=== PATIENT | female | born 1940 | race Caucasian/White ===

== ENCOUNTER 2023-12-17 19:49 | Emergency (ER) | payer OTHER, SELFPAY ==
[2023-12-17 19:53] VITALS: BP 165/90; BMI 20.2
[2023-12-17 20:04] LABS: % Basophils 0.5 % (0-2); % Eosinophils 0.5 % (0-6); % Immature Granulocytes 0.5 % (0-0.5); % Lymphocytes 3.5 % (20.5-51.1); % Monocytes 5.6 % (1.7-9.3); % Neutrophils 89.4 % (42.2-75.2); Absolute Basophils 0.1 10^3/uL (0-0.2); Absolute Eosinophils 0.1 10^3/uL (0-0.7); Absolute Immature Granulocytes 0.1 10^3/uL (0-0.05); Absolute Lymphocytes 0.5 10^3/uL (1.2-3.4); Absolute Monocytes 0.9 10^3/uL (0.1-0.6); Absolute Neutrophils 13.6 10^3/uL (1.4-6.5); Hematocrit 33.9 % (37.0-47.0); Hemoglobin 10.3 g/dL (12.0-16.0); Mean Corp Hgb Conc. 30.4 g/dL (33.0-37.0); Mean Corpuscular Hgb 22.7 pg (27.0-31.0); Mean Corpuscular Volume 74.7 fL (81.0-99.0); Mean Platelet Volume 9.9 fL (7.4-10.4); Nucleated Red Blood Cells % 0 %; Platelet Count 350 10^3/uL (130-400); Red Blood Cell Count 4.54 10^6/uL (4.20-5.40); Red Cell Dist. Width 24.9 % (11.5-14.5); White Blood Cell Count 15.2 10^3/uL (4.8-10.8)
[2023-12-17 20:18] LABS: ALT (SGPT) 19 U/L (0-35); AST (SGOT) 32 U/L (14-36); Albumin 4.4 g/dl (3.5-5.0); Alkaline Phosphatase 94 U/L (38-126); Blood Urea Nitrogen 15 mg/dl (7-17); Calcium 11.6 mg/dl (8.4-10.2); Carbon Dioxide 23 mmol/L (22-30); Chloride 103 mmol/L (98-107); Estimated Creatinine Clearance 57 ml/min; Glucose 107 mg/dl (70-99); Lipase 154 U/L (23-300); Sodium 134 mmol/L (135-145); Total Bilirubin 0.4 mg/dl (0.2-1.3); Total Protein 6.8 g/dl (6.3-8.2); eGFR > 60.00
--- NOTE | 2023-12-17 20:34 | ED.GENMED ---
History of Present Illness
General
Chief Complaint: Abdominal Symptoms
Source: patient and family (Daughter)
Exam Limitations: none
Time Seen by Provider: 12/17/23 20:13
Travel History
Have you had any contact with someone who has COVID-19?: No
Do you have any symptoms of coronavirus? Fever > 100 degrees, chills, cough, shortness of breath, sore throat, loss of taste or smell, muscle aches, or headache?: No
History of Present Illness
History of Present Illness:
This is a 83 year old female that comes in with c/o abd pain. Patient states that this started 2 days ago and is getting worse. States that she is SOB and has a headache. Daughter states that she is to have an Endoscopy with Dr. Estrada. Denies any
nausea, vomiting, diarrea. Denies any fever, chills, dizziness, urinary burning.
Past History
Past History
ED Past Medical History: COPD, Hypercholesterolemia and Other (Chronic bronchitis, UTI, PNA, )
ED Past Surgical History: Cholecystectomy and Other (Cataracts)
Social History
Tobacco: Former smoker
Alcohol: Former
Personal:
Living: with family
Review of Systems
Review of Systems
All Other Systems: ROS reviewed and negative except as documented in HPI and ROS
Constitutional: Reports no symptoms; Denies fever or chills
EENT: Reports no symptoms
Respiratory: Reports trouble breathing; Denies cough
Cardiac: Reports no symptoms; Denies chest pain
ABD/GI: Reports abdominal pain; Denies nausea, vomiting or diarrhea
: Reports no symptoms
Musculoskeletal: Reports no symptoms
Skin: Reports no symptoms
Neurological: Reports headache; Denies dizzy
Psychiatric: Reports no symptoms
Phy Exam
General Physical Exam
General Presentation: mild distress
General age: appears stated age
General Skin: warm and dry
General Habitus: elderly
General Mental: alert
General Hydration: appears well hydrated
ENT Exam
ENT Exam: TM's normal, pharynx normal and neck supple
Eye Exam
Eye Exam: EOMI
Cardiovascular Exam
Cardiovascular Exam: regular rate/rhythm, no edema, no murmur and normal peripheral pulses
Pulmonary Exam
Pulmonary Exam: no respiratory distress, no rales, chest non tender, no rhonchi, no cough and other (Exp wheezing noted. )
Gastrointestinal Exam
Gastrointestinal Exam: soft, no organomegaly, no pulsatile mass, non distended, tender (Upper abd tenderness with palpation) and other (Hypoactive bowel sounds)
Musculoskeletal Exam
Musculoskeletal Exam: no edema and other (Long left boat on left foot due to prior fractures. )
Skin Exam
Skin Exam: normal color, warm/dry, no rash and no petechia
Psychiatric Exam
Psychiatric Exam: normal mood/affect
Course
Orders/Labs/Results
Orders:
Orders
12/17/23 19:50
Electrocardiogram (*1) Urgent
Reason for Study: Abdominal Pain
EKG- Treatment ONCE
12/17/23 19:51
Complete Blood Count/With Diff Urgent
Comprehensive Metabolic Panel Urgent
Lipase Urgent
12/17/23 20:32
0.9% Sodium Chloride 500 ml [Nss] 500 ml IV BOLUS
Iohexol [Omnipaque] See Protocol PO NOW STA
Ketorolac [Toradol] 30 mg IV NOW STA
Pantoprazole [Protonix IV] 40 mg IV NOW STA
12/17/23 20:33
CT Abd/pel W Iv And Oral Contr Urgent
Comment:
Reason For Exam: Upper abd pain.
CR Chest - 2 Views Urgent
Comment:
Reason For Exam: SOB
12/17/23 20:53
UA Reflex to Culture [Urinalysis Reflex To Culture] Urgent
Date Specimen was Collected: 12/17/23
Time Specimen was Collected: 20:50
Urine Microscopic Reflex Cult Urgent
Urine Culture Urgent
FREDDIE Source: U
Specimen Description:
Date Specimen was Collected: 12/17/23
Time Specimen was Collected: 20:50
12/17/23 23:52
NT-proBNP Urgent
Troponin I Urgent
Abnormal Lab Results
12/17/23 12/17/23
19:51 20:53
WBC 15.2 H 10^3/uL
(4.8-10.8)
Hgb 10.3 L g/dL
(12.0-16.0)
Hct 33.9 L %
(37.0-47.0)
MCV 74.7 L fL
(81.0-99.0)
MCH 22.7 L pg
(27.0-31.0)
MCHC 30.4 L g/dL
(33.0-37.0)
RDW 24.9 H %
(11.5-14.5)
Abs Immat Gran (auto) 0.1 H 10^3/uL
(0-0.05)
Absolute Neuts (auto) 13.6 H 10^3/uL
(1.4-6.5)
Absolute Lymphs (auto) 0.5 L 10^3/uL
(1.2-3.4)
Absolute Monos (auto) 0.9 H 10^3/uL
(0.1-0.6)
Neutrophils % 89.4 H %
(42.2-75.2)
Lymphocytes % 3.5 L %
(20.5-51.1)
Sodium 134 L mmol/L
(135-145)
Glucose 107 H mg/dl
(70-99)
Calcium 11.6 H mg/dl
(8.4-10.2)
Ur Occult Blood Reflex 1+ A
(Negative)
Leukocyte Esterase Rfl 1+ A
(Negative)
Urine WBC (Reflex) 11-15 A /HPF
(0-5)
Urine Bacteria (Reflex) Few A
(Negative)
12/17/23 19:51
12/17/23 19:51
Leukocytosis, H/H low but improved according to daughter and prior labs, Anemia, Glucose nonfasting. Calcium elevation. Lipase normal at 154
Vital Signs
Initial and Last Documented VS:
Initial Vital Signs
Temp Pulse Resp BP Pulse Ox
98.2 F 95 18 165/90 95
12/17/23 19:53 12/17/23 19:53 12/17/23 19:53 12/17/23 19:53 12/17/23 19:53
Last Documented Vital Signs
Temp Pulse Resp BP Pulse Ox
98.2 F 82 26 111/76 98
12/17/23 19:53 12/17/23 23:00 12/17/23 23:00 12/17/23 23:00 12/17/23 23:00
MDM/Problems Addressed
Differential Diagnosis Includes:
Gastritis, Duodenal Ulcer, Bowel Perforation
MDM/Problems Addressed:
This is a 83 year old female that comes in with c/o upper abd pain. States that this started 2 days ago and is getting worse. Daughter states that she is to have an Endoscopy by Dr. Estrada
Will get labs and CT abd/pelvis. Will give IV fluids and chest X-ray. Will medicate for pain.
CT cont- calcifications. Degenerative changes in the spine, pelvis and hips.
back into see patient and daughter. Reviewed labs and CT scan. Will have patient start Protonix daily and Carafate. Patient has an appointment with the remote sensing specialist on Sunday (Dr. Butterfield) and DR Estrada for Endoscopy next week. Patient to
return with increased SOB, abd pain, or any other concerns.
Chronic conditions affecting care: COPD
Acute Exacerbation and/or Progression of Chronic Illness: COPD
*Radiology
Radiology exam reviewed: radiology read reviewed (CT night hawk- No acute intra-abdominal pathology. No bowel obstruction, appreciable inflammatory process, or perforation. Colonic diverticulosis without signs of diverticulitis. Normal appendix.
Stomach appears within normal limits. Cholecystectomy. Extrahepatic ductal dilation (CBD measuring up to), all reviewed NAD by ED Provider (CT cont- 10mm in diameter) and intrahepatic ductal dilation ( mild to moderate). May be physiologic
postoperatively. Could correlate with biochemical parameters. No pancreatic ductal dilation. No sign of pancreatitis. No obstructing ureteral calculus, hydroureteronephrosis or signs of pyelonephritis) and other (CT cont- Markedly atrophic left
kidney. Urinary b ladder appears normal. No AAA. Emphysema and suspected areas of scarring in the visualized lung bases. 11mm spiculated nodule in the left lower lobe which is indeterminatne. Difficulty to exclude neoplasm. Coronary and systemic
atherosclerotic )
*Pulse Oximetry
Patient hypoxic: no
*EKG
Interpreted by ED Provider?: Yes
Heart Rate: 89
Rate: normal
Rhythm: sinus
[place]: normal axis
Interval: normal interval
QRS Pattern: normal QRS
Ischemia: non-specific ST changes (II, V3, V5, V6 Checked by Dr. Badillo)
*Section Beamer Interpretation
Rate: normal
Heart Rate: 95
Rhythm: sinus
*Critical Care Note
Total Time (30-74mins, 75-104mins- exclusive of procedures): Not Applicable
ED Attending Note
-
Portions of this chart may have been created with voice recognition software.� Occasional wrong word or��sound alike� substitutions may have occurred due to the inherent limitations of voice recognition software.
Discharge Plan
Departure
Patient Disposition: Home (Routine Discharge)
Date of Disposition: 12/18/23
Time of Disposition: 00:21
Patient with high blood pressure during this ER visit?: No
Condition: Good
Covid-19: Not Applicable
Discharge Problem:
Gastritis, Acute upper abdominal pain
Instructions: Gastritis (DC), Ulcer and Gastritis Diet, Abdominal Pain
Prescriptions:
New
pantoprazole [Protonix] 40 mg tablet,delayed release (DR/EC)
40 mg PO DAILY Qty: 30 0RF
sucralfate [Carafate] 1 gram tablet
1 g PO ACHS Qty: 40 0RF
Rx Instructions:
30min-1hour before meals and HS. Dissolve in 10ml water
No Action
albuterol sulfate [Ventolin HFA] 90 MCG/PUFF HFA aerosol inhaler
2 puff inhalation R Q4HPRN PRN (Reason: wheezing)
fluticasone furoate-vilanterol [Breo Ellipta] 1 EACH blister with device
1 inh inhalation R DAILY
Incruse Ellipta 62.5 mcg/actuation Blister With Device
1 inh INHALATION R DAILY
ascorbic acid (vitamin C) [Vitamin C] 500 mg Tablet
500 mg PO DAILY
zinc 50 mg Tablet
50 mg PO DAILY
cholecalciferol (vitamin D3) [Vitamin D3] 25 mcg (1,000 unit) Tablet
25 mcg PO DAILY
azithromycin 250 MG tablet
250 mg PO DAILY
albuterol sulfate 2.5 mg /3 mL (0.083 %) solution for nebulization
2.5 mg inhalation R DAILY@1500
aspirin 325 mg Tablet
325 mg PO DAILY
simvastatin 40 mg tablet
40 mg PO QPM
prednisone 1 mg tablet
1 mg PO DAILY
ferrous sulfate 325 mg (65 mg iron) Tablet
325 mg PO DAILY
budesonide 0.5 mg/2 mL suspension for nebulization
0.5 mg inhalation R DAILY@1500
quercetin 500 mg Capsule
500 mg PO DAILY
Methyl B-12
1 tab PO DAILY
Vitamin K M7
1 tab PO DAILY
Referrals:
Samreen Leung CRNP [Family Provider] - Call in 1-3 days for appt
Activity Restrictions/Additional Instructions:
As discussed, your blood work shows that your Anemia has improved some. Your WBC are elevated. This can be due to stress. Your urine is questionable for infection so if the culture comes back positive for infection you will be called and started on
an antibiotics. Your CT is negative for any acute disease. There is a left lower lobe Nodule that will need fo be followed by the remote sensing specialist. This upper abd pain may be a Gastritis. You have had 2 prescriptions sent to your Pharmacy. The
first is Carafate 1gm that you will take 30min to 1 hour before meals and again at Bedtime. The second is Protonix that you will take daily. Please use your oxygen at home to help with any SOB. IF YOU HAVE INCREASED OR CHANGING PAIN, OR YOU HAVE
ANY OTHER CONCERNS PLEASE RETURN TO THE EMERGENCY ROOM.
Interventions
Interventions:
*Risk Screen - Suicide Last Done: 12/17/23 19:53
*General Assessment Last Done: 12/17/23 19:53
*Neglect/Abuse Screening Last Done: 12/17/23 19:53
ED- Fall Risk Assessment Last Done: 12/17/23 19:53
FA-Ywvjen-Vfccdeectx Assessment Last Done: 12/17/23 19:55
[2023-12-17] MEDS: PROTONIX IV 40 MG IV (20:40)
[2023-12-17] MEDS: TORADOL 30 MG IV (20:40)
[2023-12-17] MEDS: OMNIPAQUE 50 ML PO (20:43)
[2023-12-17] MEDS: NSS 500 IV (20:43)
[2023-12-17 21:15] LABS: Urine Albumin Trace (Neg - Trace); Urine Bilirubin Negative (Negative); Urine Character Clear (Clear); Urine Color Yellow; Urine Glucose Negative (Negative); Urine Ketone Negative (Negative); Urine Leukocyte 1+ (Negative); Urine Nitrite Negative (Negative); Urine Occult Blood 1+ (Negative); Urine Urobilinogen Negative (Neg - 1+)
[2023-12-17 21:25] LABS: Urine Red Blood Cell 0-2 /HPF (0-2)
[2023-12-17 21:26] LABS: Urine Bacteria Few (Negative)
[2023-12-17 22:36] VITALS: BP 139/91
[2023-12-17 23:00] VITALS: BP 111/76
[2023-12-18] VITALS: BP 155/91
[2023-12-18 00:36] LABS: NT-proBNP 308 pg/ml; Troponin I < 0.012 ng/ml
== END 2023-12-18 00:30 | disposition home or self-care (01) ==
LOC: EMR 19:49
PROVIDERS: Clinical Nurse Specialist Family Health; EMERGENCY PHYSICIAN Emergency Medicine; FAMILY PHYSICIAN Nurse Practitioner Adult Health
DX: R10.10 Upper abdominal pain, unspecified (principal); K29.00 Acute gastritis without bleeding; J44.9 Chronic obstructive pulmonary disease, unspecified; Z87.891 Personal history of nicotine dependence
CPT/HCPCS: 99285; 96374; 96375; 96361 ×2; 71046; 74177; 80053; 81003; 81015; 83690; 83880; 84484; 85025; 87086; 93005; Q9967

== ENCOUNTER → 2024-03-19 15:49 | Outpatient (REF) | payer OTHER, SELFPAY | LOC: RAD 15:49 | PROVIDERS: ATTENDING PHYSICIAN Psychiatry & Neurology Neurology; FAMILY PHYSICIAN Family Medicine | DX: R41.89 Other symptoms and signs involving cognitive functions and awareness (principal) | CPT/HCPCS: 70450 ==

== ENCOUNTER → 2024-05-20 15:52 | Outpatient (REF) | payer OTHER, SELFPAY | LOC: RAD 15:52 | PROVIDERS: ATTENDING PHYSICIAN Radiology Radiation Oncology; FAMILY PHYSICIAN Family Medicine; REFERRING PHYSICIAN Internal Medicine Critical Care Medicine | DX: C34.32 Malignant neoplasm of lower lobe, left bronchus or lung (principal) | CPT/HCPCS: 71250 ==

== ENCOUNTER 2024-11-01 19:00 | Inpatient (IN) | payer OTHER, SELFPAY ==
[2024-11-01] VITALS (7 sets, daily range): BP systolic 111–151; BP diastolic 68–82; BMI 20.7; BMI 21.8
[2024-11-01 12:39] LABS: % Basophils 0.3 % (0-2); % Eosinophils 0.3 % (0-6); % Immature Granulocytes 0.7 % (0-0.5); % Lymphocytes 4.2 % (20.5-51.1); % Monocytes 7.8 % (1.7-9.3); % Neutrophils 86.7 % (42.2-75.2); Absolute Basophils 0.1 10^3/uL (0-0.2); Absolute Eosinophils 0.1 10^3/uL (0-0.7); Absolute Immature Granulocytes 0.1 10^3/uL (0-0.05); Absolute Lymphocytes 0.8 10^3/uL (1.2-3.4); Absolute Monocytes 1.4 10^3/uL (0.1-0.6); Hematocrit 38.8 % (37.0-47.0); Mean Corp Hgb Conc. 33.5 g/dL (33.0-37.0); Mean Corpuscular Volume 92.4 fL (81.0-99.0); Mean Platelet Volume 9.8 fL (7.4-10.4); Nucleated Red Blood Cells % 0 %; Platelet Count 344 10^3/uL (130-400); Red Cell Dist. Width 13.7 % (11.5-14.5); White Blood Cell Count 18.4 10^3/uL (4.8-10.8)
[2024-11-01 13:03] LABS: ALT (SGPT) 21 U/L (0-35); AST (SGOT) 25 U/L (14-36); Albumin 3.4 g/dl (3.5-5.0); Alkaline Phosphatase 99 U/L (38-126); Blood Urea Nitrogen 11 mg/dl (7-17); Calcium 10.3 mg/dl (8.4-10.2); Carbon Dioxide 20 mmol/L (22-30); Chloride 104 mmol/L (98-107); Glucose 100 mg/dl (70-99); Potassium 3.8 mmol/L (3.5-5.1); Sodium 136 mmol/L (135-145); Total Bilirubin 0.6 mg/dl (0.2-1.3); Total Protein 5.9 g/dl (6.3-8.2); eGFR > 60.00
--- NOTE | 2024-11-01 15:56 | ED.GENMED ---
History of Present Illness
<Neris Rodriguez PA-C - Last Filed: 11/01/24 21:35>
General
Chief Complaint: Breathing Problem
Source: patient and family (Daughter at bedside)
Exam Limitations: dementia
Time Seen by Provider: 11/01/24 14:59
Nursing documentation reviewed up to this point in time: agreed with
History of Present Illness
History of Present Illness:
Patient is an 83-year-old female with history of dementia, COPD presenting to the emergency department for evaluation of shortness of breath and right back pain. Patient unable to contribute fully to history given history of dementia.
However�patient's daughter is at bedside who is providing majority of history.
Apparently patient has been sick with URI/flu type symptoms over the past 10 days. She seemed to be improving until earlier this week when she seemed to get worse. She describes worsening shortness of breath and a pain in her right back. Daughter
states that starting yesterday she has had a few episodes of diarrhea, as well. No chest pain. Minimal productive cough. Patient denies any urinary symptoms or abdominal pain.
Patient does take antibiotics daily, azithromycin given COPD.
Past History
<Neris Rodriguez PA-C - Last Filed: 11/01/24 21:35>
Past History
ED Past Medical History: COPD, Hypercholesterolemia and Other (Chronic bronchitis, UTI, PNA, )
ED Past Surgical History: Cholecystectomy and Other (Cataracts)
Social History
Tobacco: Former smoker
Alcohol: Former
Personal:
Living: with family
Review of Systems
<Neris Rodriguez PA-C - Last Filed: 11/01/24 21:35>
Review of Systems
Allergies reviewed?: Yes
All Other Systems: ROS reviewed and negative except as documented in HPI and ROS
Phy Exam
<Neris Rodriguez PA-C - Last Filed: 11/01/24 21:35>
Physical Exam
Physical Exam:
Vitals: Mildly tachycardic and tachypneic, O2 saturation 92 on room air.
General: Patient is well appearing, no acute distress
Skin: Warm and dry, no rashes or lesions
Head: Normocephalic, atraumatic
Eyes: Sclera nonicteric. EOMs intact. No nystagmus.
Throat: Protecting airway
Neck: Normal ROM, no cervical spine tenderness, no meningismus
Cardiac: Mildly tachycardic, normal rhythm, no murmurs.
Pulm: Mildly tachypneic. Prolonged expiratory phase with significant wheezing bilaterally. Crackles in right mid lung zone.
Abdomen: Abdomen soft. No abdominal tenderness.
Extremities: No evidence of cyanosis or edema. Palpable DP pulses bilaterally
Neuro: AAOx3. Grossly intact.
Psychiatric: Normal affect.
Scores
<Neris Rodriguez PA-C - Last Filed: 11/01/24 21:35>
Heart Failure Risk
Heart Failure Risk Score: Not Applicable
Course
<Neris Rodriguez PA-C - Last Filed: 11/01/24 21:35>
Orders/Labs/Results
Orders:
Orders
11/01/24 Breakfast
Regular
11/01/24 12:14
Electrocardiogram (*1) Urgent
Reason for Study: Other
Other Reason for Exam: Respiratory Distress
EKG- Treatment ONCE
CR Chest - 2 Views Urgent
Comment:
Reason For Exam: respiratory distress
11/01/24 12:29
Complete Blood Count/With Diff Urgent
Comprehensive Metabolic Panel Urgent
Troponin I Urgent
11/01/24 15:27
0.9% Sodium Chloride 1000 ml [Nss] 1,000 ml IV BOLUS
Acetaminophen [Tylenol] 650 mg PO NOW STA
Dexamethasone Sod Phosphate [Decadron] 10 mg IV NOW STA
Ipratropium/Albuterol Sulfate [Duoneb] 3 ml INH R NOW STA
11/01/24 16:07
COVID-19 Antigen Urgent
Source: Nasal Swab
Lactic Acid Q4H
Comment: CANCEL 2nd LACTIC ACID IF 1st LACTIC ACID IS LESS THAN 2
Troponin I Urgent
Blood Culture Q30M
FREDDIE Source: Blood/Venous
Specimen Description:
Influenza A+B Rapid Molecular Urgent
FREDDIE Source: Nasal Swab
Specimen Description:
11/01/24 16:34
Piperacillin/Tazo 4.5 Gram [Zosyn] 4.5 gram in 100 ml IV NOW
11/01/24 17:05
Blood Culture Q30M
FREDDIE Source: Blood/Venous
Specimen Description:
11/01/24 17:16
CDIFF [C difficile Antigen & Toxins] Urgent
FREDDIE Source: Feces/Stool
Specimen Description:
11/01/24 18:46
Admit/Transfer Patient As Directed
Co-Sign Provider:
Level of Care: Inpatient admission
Assign to:: Medical/Surgical
Physician / Group: gama
Diagnosis: pneumonia
Reason for Hospitalization: pneumonia
Expected length of stay greater than two midnights?: Yes
ELOS- Estimated Length of Stay in days: 3
I certify the patient meets the requirements for IP care: Yes
PRN Pain Medication Management As Directed
May give lesser potent ordered pain med per pt: Yes
preference::
Protocol:: Medication orders for pain may be administered in a
manner that supports deferring to patient preference
when the pt is:
- Requesting an ordered lesser potent pain medication.
Least to most potent pain medications are defined
as: acetaminophen < NSAID < tramadol < opioids
(morphine, oxycodone, hydromorphone).
- Requesting a lesser dose of the same medication IF
ORDERED.
- Requesting a less intrusive route of administration
if both routes are prescribed by the provider (PO <
IV).
11/01/24 18:47
Code Status As Directed
Resuscitation Status: Full Code
11/01/24 19:00
Norovirus by PCR Routine
FREDDIE Source: Feces/Stool
Specimen Description:
Stool Culture Routine
FREDDIE Source: Feces/Stool
Specimen Description:
11/01/24 20:30
Acetaminophen [Tylenol] 650 mg PO Q4HPRN PRN
Acetaminophen [Tylenol] 650 mg PO Q4HPRN PRN
Buspirone [Buspar] 7.5 mg PO DAILYPRN PRN
Guaifenesin [Mucinex] 600 mg PO Q12
Ipratropium/Albuterol Sulfate [Duoneb] 3 ml INH R Q4HPRN PRN
Ipratropium/Albuterol Sulfate [Duoneb] 3 ml INH R QID
11/01/24 20:30
Legionella Urinary Antigen Routine
FREDDIE Source: Urine
Specimen Description:
Respiratory Culture/Gram Stain Urgent
FREDDIE Source: Sputum
Specimen Description:
Strep pneumoniae Antigen Routine
FREDDIE Source: Urine
Specimen Description:
Activity As Directed
Activity Level: As Tolerated
Intake/ Output As Directed
Frequency: Per unit guidelines
Vital Signs As Directed
Frequency: Per unit guidelines
Weight As Directed
Frequency: Once
Comment: on admission
Copd Education [RESP] Routine
O2 Therapy [RESP] Routine
Titrate/Wean O2 to maintain O2 sat greater than (%): 92
Special Instructions: adjust, if necessary, to avoid hyperoxia in CO2 retainers.
Use High Flow O2 if necessary
Pt Eval And Treat Routine
Activity Level: As Tolerated
DX Deep Vein Thrombosis Video Routine
11/01/24 22:00
Donepezil HCl [Aricept] 10 mg PO HS
Doxycycline [Vibramycin] 100 mg PO BID
11/02/24 00:00
CefTRIAXone [Rocephin] 1,000 mg IV Q24H
Dexamethasone Sod Phosphate [Decadron] 4 mg IV Q8H
11/02/24 06:00
Basic Metabolic Panel IN AM
Complete Blood Count/With Diff IN AM
11/02/24 08:00
Atorvastatin [Lipitor] 20 mg PO DAILY
Budesonide [Pulmicort] 0.5 mg INH R DAILY
Budesonide/Formoterol 160/4.5 [Symbicort 160/4.5 Mcg Inhaler] 2 puff INH R BID
Ferrous Sulfate [Feosol] 325 mg PO DAILY
Tiotropium Willard 2.5 Mcg [Spiriva Respimat 2.5 Mcg] 2 puff INH R DAILY
quercetin 500 mg PO DAILY
11/02/24 18:00
Enoxaparin Sodium [Lovenox] 30 mg SC QPM
11/03/24 06:00
Basic Metabolic Panel IN AM
Complete Blood Count/With Diff IN AM
11/04/24 06:00
Basic Metabolic Panel IN AM
Complete Blood Count/With Diff IN AM
11/05/24 06:00
Basic Metabolic Panel IN AM
Complete Blood Count/With Diff IN AM
Abnormal Lab Results
11/01/24
12:29
WBC 18.4 H 10^3/uL
(4.8-10.8)
Abs Immat Gran (auto) 0.1 H 10^3/uL
(0-0.05)
Absolute Neuts (auto) 16.0 H 10^3/uL
(1.4-6.5)
Absolute Lymphs (auto) 0.8 L 10^3/uL
(1.2-3.4)
Absolute Monos (auto) 1.4 H 10^3/uL
(0.1-0.6)
Immature Gran % 0.7 H %
(0-0.5)
Neutrophils % 86.7 H %
(42.2-75.2)
Lymphocytes % 4.2 L %
(20.5-51.1)
Carbon Dioxide 20 L mmol/L
(22-30)
Creatinine 0.5 L mg/dL
(0.6-1.0)
Glucose 100 H mg/dl
(70-99)
Calcium 10.3 H mg/dl
(8.4-10.2)
Total Protein 5.9 L g/dl
(6.3-8.2)
Albumin 3.4 L g/dl
(3.5-5.0)
11/01/24 12:29
11/01/24 12:29
Vital Signs
Initial and Last Documented VS:
Initial Vital Signs
Temp Pulse Resp BP Pulse Ox
98.1 F 95 18 114/68 95
11/01/24 12:11 11/01/24 12:11 11/01/24 12:11 11/01/24 12:11 11/01/24 12:11
Last Documented Vital Signs
Temp Pulse Resp BP Pulse Ox
97.7 F 92 20 151/80 95
11/01/24 20:50 11/01/24 20:50 11/01/24 20:50 11/01/24 20:50 11/01/24 20:50
<Sabrina Sy MD - Last Filed: 11/01/24 16:50>
Orders/Labs/Results
Orders:
Orders
11/01/24 Breakfast
Regular
11/01/24 12:14
Electrocardiogram (*1) Urgent
Reason for Study: Other
Other Reason for Exam: Respiratory Distress
EKG- Treatment ONCE
CR Chest - 2 Views Urgent
Comment:
Reason For Exam: respiratory distress
11/01/24 12:29
Complete Blood Count/With Diff Urgent
Comprehensive Metabolic Panel Urgent
Troponin I Urgent
11/01/24 15:27
0.9% Sodium Chloride 1000 ml [Nss] 1,000 ml IV BOLUS
Acetaminophen [Tylenol] 650 mg PO NOW STA
Dexamethasone Sod Phosphate [Decadron] 10 mg IV NOW STA
Ipratropium/Albuterol Sulfate [Duoneb] 3 ml INH R NOW STA
11/01/24 16:07
COVID-19 Antigen Urgent
Source: Nasal Swab
Lactic Acid Q4H
Comment: CANCEL 2nd LACTIC ACID IF 1st LACTIC ACID IS LESS THAN 2
Troponin I Urgent
Blood Culture Q30M
FREDDIE Source: Blood/Venous
Specimen Description:
Influenza A+B Rapid Molecular Urgent
FREDDIE Source: Nasal Swab
Specimen Description:
11/01/24 16:34
Piperacillin/Tazo 4.5 Gram [Zosyn] 4.5 gram in 100 ml IV NOW
11/01/24 17:05
Blood Culture Q30M
FREDDIE Source: Blood/Venous
Specimen Description:
11/01/24 17:16
CDIFF [C difficile Antigen & Toxins] Urgent
FREDDIE Source: Feces/Stool
Specimen Description:
11/01/24 18:46
Admit/Transfer Patient As Directed
Co-Sign Provider:
Level of Care: Inpatient admission
Assign to:: Medical/Surgical
Physician / Group: gama
Diagnosis: pneumonia
Reason for Hospitalization: pneumonia
Expected length of stay greater than two midnights?: Yes
ELOS- Estimated Length of Stay in days: 3
I certify the patient meets the requirements for IP care: Yes
PRN Pain Medication Management As Directed
May give lesser potent ordered pain med per pt: Yes
preference::
Protocol:: Medication orders for pain may be administered in a
manner that supports deferring to patient preference
when the pt is:
- Requesting an ordered lesser potent pain medication.
Least to most potent pain medications are defined
as: acetaminophen < NSAID < tramadol < opioids
(morphine, oxycodone, hydromorphone).
- Requesting a lesser dose of the same medication IF
ORDERED.
- Requesting a less intrusive route of administration
if both routes are prescribed by the provider (PO <
IV).
11/01/24 18:47
Code Status As Directed
Resuscitation Status: Full Code
11/01/24 19:00
Norovirus by PCR Routine
FREDDIE Source: Feces/Stool
Specimen Description:
Stool Culture Routine
FREDDIE Source: Feces/Stool
Specimen Description:
11/01/24 20:30
Acetaminophen [Tylenol] 650 mg PO Q4HPRN PRN
Acetaminophen [Tylenol] 650 mg PO Q4HPRN PRN
Buspirone [Buspar] 7.5 mg PO DAILYPRN PRN
Guaifenesin [Mucinex] 600 mg PO Q12
Ipratropium/Albuterol Sulfate [Duoneb] 3 ml INH R Q4HPRN PRN
Ipratropium/Albuterol Sulfate [Duoneb] 3 ml INH R QID
11/01/24 20:30
Legionella Urinary Antigen Routine
FREDDIE Source: Urine
Specimen Description:
Respiratory Culture/Gram Stain Urgent
FREDDIE Source: Sputum
Specimen Description:
Strep pneumoniae Antigen Routine
FREDDIE Source: Urine
Specimen Description:
Activity As Directed
Activity Level: As Tolerated
Intake/ Output As Directed
Frequency: Per unit guidelines
Vital Signs As Directed
Frequency: Per unit guidelines
Weight As Directed
Frequency: Once
Comment: on admission
Copd Education [RESP] Routine
O2 Therapy [RESP] Routine
Titrate/Wean O2 to maintain O2 sat greater than (%): 92
Special Instructions: adjust, if necessary, to avoid hyperoxia in CO2 retainers.
Use High Flow O2 if necessary
Pt Eval And Treat Routine
Activity Level: As Tolerated
DX Deep Vein Thrombosis Video Routine
11/01/24 22:00
Donepezil HCl [Aricept] 10 mg PO HS
Doxycycline [Vibramycin] 100 mg PO BID
11/02/24 00:00
CefTRIAXone [Rocephin] 1,000 mg IV Q24H
Dexamethasone Sod Phosphate [Decadron] 4 mg IV Q8H
11/02/24 06:00
Basic Metabolic Panel IN AM
Complete Blood Count/With Diff IN AM
11/02/24 08:00
Atorvastatin [Lipitor] 20 mg PO DAILY
Budesonide [Pulmicort] 0.5 mg INH R DAILY
Budesonide/Formoterol 160/4.5 [Symbicort 160/4.5 Mcg Inhaler] 2 puff INH R BID
Ferrous Sulfate [Feosol] 325 mg PO DAILY
Tiotropium Willard 2.5 Mcg [Spiriva Respimat 2.5 Mcg] 2 puff INH R DAILY
quercetin 500 mg PO DAILY
11/02/24 18:00
Enoxaparin Sodium [Lovenox] 30 mg SC QPM
11/03/24 06:00
Basic Metabolic Panel IN AM
Complete Blood Count/With Diff IN AM
11/04/24 06:00
Basic Metabolic Panel IN AM
Complete Blood Count/With Diff IN AM
11/05/24 06:00
Basic Metabolic Panel IN AM
Complete Blood Count/With Diff IN AM
Abnormal Lab Results
11/01/24
12:29
WBC 18.4 H 10^3/uL
(4.8-10.8)
Abs Immat Gran (auto) 0.1 H 10^3/uL
(0-0.05)
Absolute Neuts (auto) 16.0 H 10^3/uL
(1.4-6.5)
Absolute Lymphs (auto) 0.8 L 10^3/uL
(1.2-3.4)
Absolute Monos (auto) 1.4 H 10^3/uL
(0.1-0.6)
Immature Gran % 0.7 H %
(0-0.5)
Neutrophils % 86.7 H %
(42.2-75.2)
Lymphocytes % 4.2 L %
(20.5-51.1)
Carbon Dioxide 20 L mmol/L
(22-30)
Creatinine 0.5 L mg/dL
(0.6-1.0)
Glucose 100 H mg/dl
(70-99)
Calcium 10.3 H mg/dl
(8.4-10.2)
Total Protein 5.9 L g/dl
(6.3-8.2)
Albumin 3.4 L g/dl
(3.5-5.0)
11/01/24 12:29
11/01/24 12:29
Vital Signs
Initial and Last Documented VS:
Initial Vital Signs
Temp Pulse Resp BP Pulse Ox
98.1 F 95 18 114/68 95
11/01/24 12:11 11/01/24 12:11 11/01/24 12:11 11/01/24 12:11 11/01/24 12:11
Last Documented Vital Signs
Temp Pulse Resp BP Pulse Ox
97.7 F 92 20 151/80 95
11/01/24 20:50 11/01/24 20:50 11/01/24 20:50 11/01/24 20:50 11/01/24 20:50
<Neris Rodriguez PA-C - Last Filed: 11/01/24 21:35>
MDM/Problems Addressed
Differential Diagnosis Includes:
Not limited to: Viral illness, acute COPD exacerbation, pneumonia, bronchitis, pleural effusion, costochondritis, muscular strain, etc.
MDM/Problems Addressed:
Patient is an 83-year-old female with history as documented presenting with worsening shortness of breath and right back pain after recent URI. Also few episodes of diarrhea over the past few days. No chest pain. Mildly tachycardic and tachypneic
on initial vital signs although improved by my assessment. Patient is afebrile. Physical exam as above. Patient with bilateral wheezing with prolonged expiratory phase and crackles in right mid lung zone. Patient appears notably tachypneic with
mildly increased work of breathing. Impression likely COPD exacerbation secondary to viral illness with possible underlying pneumonia. Low suspicion for ACS. Do not suspect PE. Initial labs obtained in triage show a leukocytosis of 18.4 with
left shift. Otherwise no clinically significant abnormalities. EKG without any acute ischemic changes. Will check viral swabs, lactic, send blood cultures. Chest x-ray pending. Will treat with IV steroids, DuoNeb and closely monitor.
Anticipate admission
Update: Viral swabs negative. Lactic normal. Chest x-ray does show a mild right interstitial pneumonia. Given acute COPD exacerbation along with pneumonia with increased work of breathing�will admit for IV antibiotics, continued steroids and
further management. Will start IV Zosyn. Patient accepted to hospital service in stable condition.
Chronic conditions affecting care:
COPD
Acute Exacerbation and/or Progression of Chronic Illness:
Acute CHF exacerbation, pneumonia
<Neris Rodriguez PA-C - Last Filed: 11/01/24 21:35>
*Radiology
Radiology exam reviewed: radiology read reviewed (Right interstitial pneumonia)
*Pulse Oximetry
Patient hypoxic: yes
*EKG
Interpreted by ED Provider?: Yes
EKG Intrepretation Date: 11/01/24
Interpretation: normal
Comparison EKG: no changes
Heart Rate: 94
Rate: normal
Rhythm: sinus
[place]: normal axis
QRS Pattern: left vent hypertrophy
Ischemia: non-specific ST changes
*Junior Art Director Interpretation
Rate: normal
Interpretation: normal
Heart Rate: 90
Rhythm: sinus
*Critical Care Note
Total Time (30-74mins, 75-104mins- exclusive of procedures): Not Applicable
<Neris Rodriguez PA-C - Last Filed: 11/01/24 21:35>
Patient Management
Discussion with other providers: Hospitalist
Escalation/DeEscalation of care consider admission/obs:
Admit for acute CHF exacerbation, pneumonia
<Sabrina Sy MD - Last Filed: 11/01/24 16:50>
Update Note
Update Note:
83 yr old female with sxs of cough, sob and R mid madelin pain...sxs of URI for last 7-10 d,improved but then worse again over last day or two. No cp/abd pain/n/v/leg swelling. On exam, diffuse wheezing with R rales at base. No resp distress, abd
soft nt. Pt and daguther aware of plan for admisison, nebs, steroids and abx for presumed copd exac with pna. flu/covid esting pending.
ED Attending Note
<Neris Rodriguez PA-C - Last Filed: 11/01/24 21:35>
-
Portions of this chart may have been created with voice recognition software.� Occasional wrong word or��sound alike� substitutions may have occurred due to the inherent limitations of voice recognition software.
Discharge Plan
Departure
Patient Disposition: Admit
Date of Disposition: 11/01/24
Time of Disposition: 17:15
Presentation/result/management discussed w/ accepting MD/DO: Hospitalist
Discharge Problem:
Acute exacerbation of chronic obstructive pulmonary disease (COPD), CAP (community acquired pneumonia)
Interventions
Interventions:
*Risk Screen - Suicide Last Done: 11/01/24 12:11
*General Assessment Last Done: 11/01/24 20:31
*Neglect/Abuse Screening Last Done: 11/01/24 12:11
ED- Fall Risk Assessment Last Done: 11/01/24 20:29
*ED COVID-19 Vaccine History Last Done: 11/01/24 16:48
*Nursing Disposition Last Done: 11/01/24 20:29
ED- Cardiac Assessment Last Done: 11/01/24 17:58
ED- Pulmonary Assessment Last Done: 11/01/24 17:58
Discharge Date and Time
Discharge Date/Time: 11/01/24 20:31
[2024-11-01] MEDS: TYLENOL 650 MG PO (16:03)
[2024-11-01] MEDS: DUONEB 3 ML INH ×3 (16:05→20:47)
[2024-11-01] MEDS: NSS 1000 IV (16:05)
[2024-11-01] MEDS: DECADRON 10 MG IV (16:06)
[2024-11-01 16:46] LABS: Lactic Acid 1.1 mmol/L (0.7-2.0)
[2024-11-01 16:54] LABS: Troponin I 0.021 ng/ml
[2024-11-01 16:55] LABS: COVID-19 Antigen Negative (Negative)
[2024-11-01] MEDS: ZOSYN 100 IV (17:05)
--- NOTE | 2024-11-01 18:27 | HPS.HSE ---
Family Physician
-
Family Physician: NOT KNOW UNKNOWN - PT DOES
Chief Complaint
-
sob
cough
History of Present Illness
83-year-old female with history of dementia, COPD presenting to the emergency department for evaluation of congestion, non productive cough, fever, chills for past two weeks. she was taking her usual meds with no relief in her symptoms. she was
lightheaded. denied MINER, dizzy or syncope. she had fever of 101 last night. denied chest pain. she was extremely sob. denied abdominal pain but vomited once last weeks. she had some diarrhea for past few days.
patient uses 4l oxygen at home. she uses only as needed but for fast few days , she is all the time.
chest x ray with pneumonia. received Decadron and Zosyn in ER. admitting for further management.
Medical History
Past Medical History
Past Medical History: Reports Other
Additional Past Medical History:
Asthma
Osteoporosis
COPD
Bronchitis
Arthritis
Hypercalcemia
Osteoporosis
Past Surgical History: Reports Other
Additional Past Surgical History:
Cholecystectomy
Social History
Tobacco: Former Smoker
Alcohol: Former
Drug: None
Living: With Family
Family History
Family History: Not pertinent
Allergies / Home Medications
Allergies reflects when Allergies were last updated in [employer].
Home Medications with original date entered in [employer]
Allergy/Medication List:
Allergies
Allergy/AdvReac Type Severity Reaction Status Date / Time
No Known Allergies Allergy Verified 11/01/24 12:11
Home Medications
albuterol sulfate 90 mcg/actuation aerosol inhaler (Ventolin HFA) 2 puff inhalation R Q4HPRN PRN wheezing 05/05/17
ascorbic acid (vitamin C) 500 mg tablet (Vitamin C) 500 mg PO DAILY Supplement 09/09/22
azithromycin 250 mg tablet 250 mg PO DAILY exterminator helper 09/09/22
cholecalciferol (vitamin D3) 25 mcg (1,000 unit) tablet (Vitamin D3) 25 mcg PO DAILY Supplement 09/09/22
umeclidinium 62.5 mcg/actuation blister powder for inhalation (Incruse Ellipta) 1 inh inhalation R DAILY Lung/breathing issues 09/09/22
albuterol sulfate 2.5 mg/3 mL (0.083 %) solution for nebulization 2.5 mg inhalation R BIDPRN PRN sob 12/17/23
budesonide 0.5 mg/2 mL suspension for nebulization 0.5 mg inhalation R DAILY 12/17/23
cyanocobalamin (vitamin B-12) 1,000 mcg tablet 1,000 mcg PO DAILY 12/17/23
ferrous sulfate 325 mg (65 mg iron) tablet 325 mg PO DAILY 12/17/23
prednisone 1 mg tablet 2 mg PO MOWEFR 12/17/23
quercetin 500 mg capsule 500 mg PO DAILY 12/17/23
vitamin K2 (MK-4) 100 mcg tablet 100 mcg PO DAILY 12/17/23
ucfyklf-dsnplgizxejcv-xccjylcp 250 mg-250 mg-65 mg tablet (Excedrin Migraine) 1 tab PO DAILY 11/01/24
atorvastatin 20 mg tablet 20 mg PO DAILY 11/01/24
buspirone 7.5 mg tablet 7.5 mg PO DAILYPRN PRN anxiety 11/01/24
donepezil 10 mg tablet 10 mg PO HS 11/01/24
fluticasone furoate 200 mcg-vilanterol 25 mcg/dose inhalation powder (Breo Ellipta) 1 inh inhalation R DAILY 11/01/24
ibuprofen 200 mg tablet (Advil) 400 mg PO Q8HPRN PRN mild pain 11/01/24
therapeutic multivitamin 1 tab PO DAILY 11/01/24
zinc sulfate 50 mg zinc (220 mg) tablet 50 mg PO DAILY 11/01/24
Review of Systems
-
Constitutional: Reports No Symptoms, Fever, Fatigue and Chills
EENT: Reports No Symptoms
Respiratory: Reports Cough and Trouble Breathing
Cardiac: Reports No Symptoms
Abdomen/GI: Reports Vomiting and Diarrhea
: Reports No Symptoms
Musculoskeletal: Reports No Symptoms
Skin: Reports No Symptoms
Neurological: Reports No Symptoms
Endocrine: Reports No Symptoms
Hematologic/Lymphatic: Reports No Symptoms
Psych: Reports No Symptoms
Physical Exam
Vital Signs
Vital Signs
Temp Pulse Resp BP Pulse Ox
98.1 F 76 22 136/82 99
11/01/24 14:46 11/01/24 16:47 11/01/24 14:46 11/01/24 17:00 11/01/24 18:00
Physical Exam
General: Well Developed, Well Nourished and No Apparent Distress
HEENT: NormoCephalic, Moist mucous membranes and Atraumatic
Respiratory: Wheezes and Rhonchi
Cardiac: S1/S2 and Regular Rhythm; No Murmur or Rub
GI: Soft, Non Tender, Non Distended and Normal Bowel Sounds; No Organomegaly
Rectal: Deferred by Provider
Musculoskeletal: No Clubbing, No Cyanosis and No Edema
Skin: No Rash
Neuro: AO x 3 and Nonfocal/grossly intact
Psych: Calm
Laboratory Results
-
11/01/24 12:29
11/01/24 12:29
Laboratory Results
Lactic Acid 1.1 mmol/L (0.7-2.0) 11/01/24 16:07
Total Bilirubin 0.6 mg/dl (0.2-1.3) 11/01/24 12:29
AST 25 U/L (14-36) 11/01/24 12:29
ALT 21 U/L (0-35) 11/01/24 12:29
Alkaline Phosphatase 99 U/L (38-126) 11/01/24 12:29
Troponin I 0.021 ng/ml 11/01/24 16:07
Data Reviewed
-
Diagnostic Radiology: Report Reviewed by me
Lab Data: Labs Reviewed by me
Impression/Plan
-
# Right middle lobe pneumonia
# COPD exacerbation
#chronic hypoxic respiratory failure
-Continue DuoNebs
-Continue IV Decadron and abx
-WBC 18.4, patient is afebrile
-COVID, flu negative
-Chest x-ray with mild right middle lobe interstitial pneumonia
-Blood culture sent from ER
-continue supplemental oxygen to keep sat>92
-wean as tolerated
#diarrhea likely gastroenteritis
-stool for culture, c diff, norovirus
#History of hyperlipidemia
Continue statin
#Scoliosis with chronic back pain
-Tylenol as needed
DVT prophylaxis�Lovenox
Full code
--- NOTE | 2024-11-01 21:57 | W.PN.UPDATE ---
Update Note
Progress Note Update
Attending note
Patient seen independently
83-year-old woman comes in with congestion, non productive cough, fever, chills for past two weeks. She states she was lightheaded. She denied MINER, dizzy or syncope. She had fever of 101 last night. She denied chest pain. But she was extremely sob.
She denied abdominal pain but vomited once last weeks, and she had some diarrhea for past few days. chest x ray in ER with pneumonia. She received Decadron and Zosyn in ER.
Past Medical History
Asthma
Osteoporosis
COPD
Bronchitis
Arthritis
Hypercalcemia
Osteoporosis
Past Surgical History: Reports Other
Additional Past Surgical History:
Cholecystectomy
Physical Exam
General: Well Developed, Well Nourished and No Apparent Distress
HEENT: NormoCephalic, Moist mucous membranes and Atraumatic
Respiratory: Wheezes and Rhonchi
Cardiac: S1/S2 and Regular Rhythm; No Murmur or Rub
GI: Soft, Non Tender, Non Distended and Normal Bowel Sounds; No Organomegaly
Psych: Calm
Impression/Plan
1. Right middle lobe pneumonia with COPD exacerbation in setting of chronic hypoxic respiratory failure
-Continue DuoNebs
-Continue IV Decadron and abx
-Blood culture sent from ER
-continue supplemental oxygen to keep sat>92
-wean as tolerated
2. diarrhea (likely gastroenteritis)
-stool for culture, c diff, norovirus
Please see [employer] note for full details on
#History of hyperlipidemia
#Scoliosis with chronic back pain
DVT prophylaxis�Lovenox
Full code
[2024-11-01] MEDS: VIBRAMYCIN 100 MG PO (22:14)
[2024-11-01] MEDS: MUCINEX 600 MG PO (22:14)
[2024-11-01] MEDS: ARICEPT 10 MG PO (22:14)
--- NOTE | 2024-11-01 23:41 | PTCARENOTE ---
Pt admitted to [facility] from ED. Pt AAOx3, forgetful at times. Per patient, hx of multiple falls at home. Pt was reminded multiple times to use call lopez before getting out of bed. Bed alarm now in place for patient's safety. Pt on 4L O2, which she
uses at baseline at home as needed. Pt admitted for further management of PNA. Pt oriented to room, bed in lowest position and call lopez within reach.
[2024-11-02] MEDS: ROCEPHIN 1000 MG IV (00:20)
[2024-11-02] MEDS: STERILE WATER FOR INJECTION 10 ML IV (00:20)
[2024-11-02] MEDS: DECADRON 4 MG IV ×3 (00:20→17:14)
[2024-11-02 06:56] LABS: % Basophils 0.1 % (0-2); % Lymphocytes 4.2 % (20.5-51.1); % Monocytes 2.2 % (1.7-9.3); % Neutrophils 92.5 % (42.2-75.2); Absolute Immature Granulocytes 0.1 10^3/uL (0-0.05); Absolute Lymphocytes 0.4 10^3/uL (1.2-3.4); Absolute Monocytes 0.2 10^3/uL (0.1-0.6); Mean Corp Hgb Conc. 32.4 g/dL (33.0-37.0); Mean Corpuscular Hgb 30.7 pg (27.0-31.0); Mean Corpuscular Volume 94.6 fL (81.0-99.0); Nucleated Red Blood Cells % 0 %; Platelet Count 335 10^3/uL (130-400); Red Blood Cell Count 3.91 10^6/uL (4.20-5.40); Red Cell Dist. Width 13.9 % (11.5-14.5); White Blood Cell Count 8.6 10^3/uL (4.8-10.8)
[2024-11-02 07:26] LABS: Blood Urea Nitrogen 17 mg/dl (7-17); Calcium 9.9 mg/dl (8.4-10.2); Carbon Dioxide 20 mmol/L (22-30); Chloride 108 mmol/L (98-107); Estimated Creatinine Clearance 52 ml/min; Glucose 129 mg/dl (70-99); Potassium 4.1 mmol/L (3.5-5.1); Sodium 139 mmol/L (135-145); eGFR > 60.00
[2024-11-02 08:06] VITALS: BP 156/84
[2024-11-02] MEDS: PULMICORT 0.5 MG INH (08:06)
[2024-11-02] MEDS: DUONEB 3 ML INH ×4 (08:06→20:24)
[2024-11-02] MEDS: SYMBICORT 160/4.5 MCG INHALER 2 PUFF INH (08:06)
[2024-11-02] MEDS: MUCINEX 600 MG PO ×2 (08:49→21:01)
[2024-11-02] MEDS: FEOSOL 325 MG PO (08:49)
[2024-11-02] MEDS: LIPITOR 20 MG PO (08:49)
[2024-11-02] MEDS: VIBRAMYCIN 100 MG PO ×2 (08:49→21:01)
[2024-11-02] MEDS: TYLENOL 650 MG PO ×2 (08:51→21:13)
[2024-11-02] MEDS: BUSPAR 7.5 MG PO (08:52)
[2024-11-02 10:35] VITALS: BP 118/59; BP 152/77; PULSE 106; PULSE 90; O2SAT 98
--- NOTE | 2024-11-02 12:23 | W.PN.HOSP.TC ---
Today's Communication/Plan
-
Monitor vital signs see plan
Continue with antibiotics
Wean oxygen as tolerated
Continue with nebs
Continue steroids
Assessment / Plan
Assessment / Plan
General: Well Developed, Well Nourished and No Apparent Distress
HEENT: NormoCephalic, Moist mucous membranes and Atraumatic
Respiratory: Wheezes and Rhonchi
Cardiac: S1/S2 and Regular Rhythm; No Murmur or Rub
GI: Soft, Non Tender, Non Distended and Normal Bowel Sounds
Musculoskeletal: No Edema
Skin: No Rash
Neuro: AO x 3 and Nonfocal/grossly intact
Psych: Calm
Right middle lobe pneumonia
# COPD exacerbation
#chronic hypoxic respiratory failure, patient follows with Dr. Nevarez outpatient. Per patient she is supposed to use oxygen all the time however she is not using
-Continue DuoNebs
-Continue IV Decadron
Continue with ceftriaxone and doxycycline. Once done with this treatment then can go back to azithromycin daily
-COVID, flu negative
Check Legionella, strep
-Chest x-ray with mild right middle lobe interstitial pneumonia
-Blood culture sent from ER, pending
On O2, wean oxygen as tolerated
#diarrhea likely gastroenteritis
Appears now improving
-stool for culture, c diff, norovirus
#History of hyperlipidemia
Continue statin
Suspected cognitive impairment, no documented history of dementia
On donepezil
Monitor for behavioral change
Anxiety
On BuSpar as needed
#Scoliosis with chronic back pain
DVT prophylaxis�Lovenox
Full code
I spent a total of 52 minutes with the patient or on the floor. More than 50% of this time involved counseling and coordination of care.
Anticipated Discharge: > 48 hours
Subjective/Interval History
-
Date of Service: November 02, 2024
Denies pain
Objective Data
-
Labs:
Laboratory Results
11/02/24
05:33
WBC 8.6
Hgb 12.0
Hct 37.0
Plt Count 335
Sodium 139
Potassium 4.1
Chloride 108 H
Carbon Dioxide 20 L
BUN 17
Creatinine 0.5 L
Glucose 129 H
Calcium 9.9
Vital Signs:
Vital Signs
Temp Pulse Resp BP Pulse Ox
97.6 F 94 16 156/84 96
11/02/24 08:06 11/02/24 08:06 11/02/24 11:36 11/02/24 08:06 11/02/24 11:36
I&O
11/01/24 11/02/24 11/03/24
06:59 06:59 06:59
Intake Total 240 / 240
Balance 240 / 240
[2024-11-02 15:44] VITALS: BP 132/68
[2024-11-02] MEDS: LOVENOX 30 MG SC (17:13)
[2024-11-02] MEDS: KLONOPIN 0.25 MG PO (21:01)
[2024-11-02] MEDS: ARICEPT 10 MG PO (21:01)
--- NOTE | 2024-11-02 21:47 | PTCARENOTE ---
pt very jittery anxious and restless. B[employer] OUT TENDER [employer]ACE made aware, clonipine ordered and given.
[2024-11-02 23:36] VITALS: BP 136/76
[2024-11-03] MEDS: STERILE WATER FOR INJECTION 10 ML IV (00:18)
[2024-11-03] MEDS: DECADRON 4 MG IV ×3 (00:18→15:31)
[2024-11-03] MEDS: ROCEPHIN 1000 MG IV (00:18)
--- NOTE | 2024-11-03 04:55 | PTCARENOTE ---
Pt very agitated due to bed alarm going off when attempting to use bathroom by herself. Pt reminded multiple times to use call lopez due to fall risk. Pt also known to take oxygen off when ambulating, becoming very short of breath. Attempted to
educate patient on use of call lopez and purpose of bed alarm, but patient becoming very agitated with conversation and refusing to sit on bed or chair alarm, stating 'I've been here many times, and I've never had that. They just close the door at
night and I walk around by myself.' I reminded patient that during her admission she intake, she verbalized that she had multiple falls at home. She responded by saying 'everyone falls at home. It's not a big deal. I've never fallen at the
hospital.' Pt OOB to chair at this time. Call lopez next to patient. Medsitter in place.
[2024-11-03 06:27] LABS: % Basophils 0.1 % (0-2); % Immature Granulocytes 0.9 % (0-0.5); % Lymphocytes 2.8 % (20.5-51.1); % Monocytes 4.2 % (1.7-9.3); Absolute Immature Granulocytes 0.1 10^3/uL (0-0.05); Absolute Lymphocytes 0.4 10^3/uL (1.2-3.4); Absolute Monocytes 0.7 10^3/uL (0.1-0.6); Absolute Neutrophils 14.1 10^3/uL (1.4-6.5); Hematocrit 38.7 % (37.0-47.0); Hemoglobin 12.5 g/dL (12.0-16.0); Mean Corp Hgb Conc. 32.3 g/dL (33.0-37.0); Mean Corpuscular Hgb 30.3 pg (27.0-31.0); Mean Corpuscular Volume 93.7 fL (81.0-99.0); Mean Platelet Volume 9.6 fL (7.4-10.4); Nucleated Red Blood Cells % 0 %; Platelet Count 434 10^3/uL (130-400); Red Blood Cell Count 4.13 10^6/uL (4.20-5.40); Red Cell Dist. Width 13.8 % (11.5-14.5); White Blood Cell Count 15.4 10^3/uL (4.8-10.8)
[2024-11-03 06:46] LABS: Blood Urea Nitrogen 20 mg/dl (7-17); Carbon Dioxide 26 mmol/L (22-30); Chloride 106 mmol/L (98-107); Estimated Creatinine Clearance 52 ml/min; Glucose 136 mg/dl (70-99); Potassium 4.8 mmol/L (3.5-5.1); Sodium 139 mmol/L (135-145); eGFR > 60.00
[2024-11-03 07:15] VITALS: BP 144/74
[2024-11-03] MEDS: PULMICORT 0.5 MG INH (07:48)
[2024-11-03] MEDS: DUONEB 3 ML INH ×4 (07:48→19:20)
[2024-11-03] MEDS: FEOSOL 325 MG PO (08:21)
[2024-11-03] MEDS: VIBRAMYCIN 100 MG PO ×2 (08:21→20:29)
[2024-11-03] MEDS: MUCINEX 600 MG PO (08:21)
[2024-11-03] MEDS: LIPITOR 20 MG PO (08:21)
--- NOTE | 2024-11-03 10:06 | W.PN.HOSP.TC ---
Today's Communication/Plan
-
see plan
Assessment / Plan
Assessment / Plan
General: Well Developed, Well Nourished and No Apparent Distress
HEENT: NormoCephalic, Moist mucous membranes and Atraumatic
Respiratory: Wheezes and Rhonchi
Cardiac: S1/S2 and Regular Rhythm; No Murmur or Rub
GI: Soft, Non Tender, Non Distended and Normal Bowel Sounds
Musculoskeletal: No Edema
Skin: No Rash
Neuro: AO x 3 and Nonfocal/grossly intact
Psych: Calm
Right middle lobe pneumonia
# COPD exacerbation
#chronic hypoxic respiratory failure, patient follows with Dr. Nevarez outpatient. Per patient she is supposed to use oxygen all the time however she is not using
-Continue DuoNebs
-Continue IV Decadron
-Continue with ceftriaxone and doxycycline (day 2). Once done with this treatment then can go back to azithromycin daily
-leukocytosis resolved now up likely 2/2 steroids
-COVID, flu negative; Legionella/Strep negative
-Chest x-ray with mild right middle lobe interstitial pneumonia
On O2, wean oxygen as tolerated
#diarrhea likely gastroenteritis
Appears now improving
-stool for culture, c diff, norovirus
#History of hyperlipidemia
Continue statin
Suspected cognitive impairment, no documented history of dementia
On donepezil
Monitor for behavioral change
Anxiety
On BuSpar as needed
#Scoliosis with chronic back pain
DVT prophylaxis�Lovenox
Full code
I spent a total of 52 minutes with the patient or on the floor. More than 50% of this time involved counseling and coordination of care.
Anticipated Discharge: 24 - 48 hours
Subjective/Interval History
-
Date of Service: November 03, 2024
continues to feel congestion
breathing improving
Objective Data
-
Labs:
Laboratory Results
11/03/24
05:50
WBC 15.4 H
Hgb 12.5
Hct 38.7
Plt Count 434 H D
Sodium 139
Potassium 4.8
Chloride 106
Carbon Dioxide 26
BUN 20 H
Creatinine 0.5 L
Glucose 136 H
Calcium 11.0 H
Vital Signs:
Vital Signs
Temp Pulse Resp BP Pulse Ox
97.5 F 89 18 144/74 99
11/03/24 07:15 11/03/24 07:51 11/03/24 07:51 11/03/24 07:15 11/03/24 08:00
I&O
11/02/24 11/03/24 11/04/24
06:59 06:59 06:59
Intake Total 240 / 240 240 / 240
Balance 240 / 240 240 / 240
Review of Systems
-
History Source: Patient
All other systems: Reviewed and negative
Physical Exam
-
General: No Apparent Distress
HEENT: PERRLA
Respiratory: Decreased Breath Sounds
Cardiac: Regular Rhythm; Negative S1/S2
GI: Soft and Nontender
Musculoskeletal: No Edema
Skin: Warm and Dry; Negative Rash
Neuro: AO x 3
Psych: Calm
Data Reviewed
-
Diagnostic Radiology: Report Reviewed by me
Labs: Labs Reviewed by me
[2024-11-03 11:00] VITALS: BMI 21.8
[2024-11-03 15:55] VITALS: BP 120/64
[2024-11-03] MEDS: BUSPAR 7.5 MG PO (16:59)
[2024-11-03] MEDS: LOVENOX 30 MG SC (17:00)
[2024-11-03] MEDS: MUCINEX 1200 MG PO (20:29)
[2024-11-03] MEDS: ARICEPT 10 MG PO (21:55)
[2024-11-03 23:55] VITALS: BP 177/101
[2024-11-04] MEDS: DECADRON 4 MG IV ×3 (00:34→17:44)
[2024-11-04] MEDS: STERILE WATER FOR INJECTION 10 ML IV ×2 (00:34→23:34)
[2024-11-04] MEDS: ROCEPHIN 1000 MG IV ×2 (00:34→23:34)
[2024-11-04] MEDS: TYLENOL 650 MG PO ×3 (05:14→19:40)
[2024-11-04 06:35] LABS: % Basophils 0.3 % (0-2); % Immature Granulocytes 2.5 % (0-0.5); % Lymphocytes 2.7 % (20.5-51.1); % Monocytes 5.6 % (1.7-9.3); % Neutrophils 88.9 % (42.2-75.2); Absolute Immature Granulocytes 0.3 10^3/uL (0-0.05); Absolute Lymphocytes 0.4 10^3/uL (1.2-3.4); Absolute Monocytes 0.8 10^3/uL (0.1-0.6); Absolute Neutrophils 12.3 10^3/uL (1.4-6.5); Hematocrit 41.7 % (37.0-47.0); Hemoglobin 13.6 g/dL (12.0-16.0); Mean Corp Hgb Conc. 32.6 g/dL (33.0-37.0); Mean Corpuscular Hgb 30.4 pg (27.0-31.0); Mean Corpuscular Volume 93.1 fL (81.0-99.0); Mean Platelet Volume 9.6 fL (7.4-10.4); Nucleated Red Blood Cells % 0 %; Platelet Count 580 10^3/uL (130-400); Red Blood Cell Count 4.48 10^6/uL (4.20-5.40); Red Cell Dist. Width 13.7 % (11.5-14.5); White Blood Cell Count 13.9 10^3/uL (4.8-10.8)
[2024-11-04 06:53] LABS: Blood Urea Nitrogen 26 mg/dl (7-17); Calcium 11.7 mg/dl (8.4-10.2); Carbon Dioxide 24 mmol/L (22-30); Chloride 102 mmol/L (98-107); Estimated Creatinine Clearance 52 ml/min; Glucose 106 mg/dl (70-99); Potassium 4.8 mmol/L (3.5-5.1); Sodium 137 mmol/L (135-145); eGFR > 60.00
[2024-11-04 07:05] VITALS: BP 133/98
[2024-11-04] MEDS: PULMICORT 0.5 MG INH (07:24)
[2024-11-04] MEDS: DUONEB 3 ML INH ×4 (07:24→19:29)
[2024-11-04] MEDS: LIPITOR 20 MG PO (08:58)
[2024-11-04] MEDS: MUCINEX 1200 MG PO ×2 (08:58→19:40)
[2024-11-04] MEDS: FEOSOL 325 MG PO (09:02)
[2024-11-04] MEDS: VIBRAMYCIN 100 MG PO ×2 (09:02→19:40)
--- NOTE | 2024-11-04 09:18 | PN.CDI ---
CDI
- -
CDI:
Physician Documentation Request
Admit Date: 11/01/24 19:00
Dear Doctor Elli,
Clinical Indicators:
Patient admitted with RML Pneumonia and COPD exacerbation.
11/01 H & P, 'she had fever of 101 last night.'
WBC on admission:
11/01/24
12:29
WBC 18.4 H
HR trend on admission:
11/01/24
12:11 11/01/24
14:46
Pulse 95 104
Please clarify which of the following most accurately describes the status of the patient's infection:
Sepsis,POA
- Systemic manifestations of infection, with 2 or more SIRS criteria which include:
- Fever >100.4 degrees F or hypothermia < 96.8 degrees F
- Leukocytosis - WBC > 12,000 or leukopenia - WBC < 4,000 or > 10% bands
- Tachycardia > 90 beats per minute
- Tachypnea - RR > 20 breaths per minute or PaCO2 , 32mmHg
Source: Merck Manual 2013
Pneumonia Only, Without Systemic Illness
Other
Use of terms such as suspected, likely, concern for, or probable (associated with a specific diagnosis that is being evaluated, monitored, or treated as if it exists) are acceptable and can be coded in the inpatient setting, when documented at the
time of discharge.
Thank you,
Margi Perkins RN BSN
CDI Specialist
available via tiger text
Please use your independent medical judgment in providing your response.
--- NOTE | 2024-11-04 09:27 | PN.CDI ---
CDI
- -
CDI:
Physician Documentation Request
Admit Date: 11/01/24 19:00
Dear Doctor Elli,
Clinical Indicators:
Patient admitted with RML Pneumonia and COPD exacerbation.
11/01 ED report, 'Patient appears notably tachypneic with mildly increased work of breathing.'
11/02 (21:47) RN note, 'pt very jittery anxious and restless'
H & P, PN, 'chronic hypoxic respiratory failure'
Maximum O2 requirements:
11/02/24
23:36
Nasal Cannula flow liters per minute 5
Please clarify which of the following accurately represents the patient's respiratory status:
Acute on chronic respiratory failure
Chronic respiratory failure only
Other
Additional information for Respiratory Failure:
Recognized criteria for Respiratory Failure (Source: [facility] Hospitalist Aug 2013)
ABGs: (1 or more) Symptoms Please indicate type if known
1. p)2 <60 or RA SPO2 <91% on RA 1. Tachypnea, SOB, dyspnea Hypoxic
2. pCO2 50 and pH <7.35 2. Use of accessory muscles Hypercapnic
3. pO2 decrease of pCO2 increase by 3. Pallor or cyanosis Hypoxic and Hypercapnic
10 mmHg from baseline if known 4. Anxiety or restlessness Unable to determine
5. Unable to speak in full sentences
Supplemental O2 of > 40% (5LPM) Intubation is not required
Use of terms such as suspected, likely, concern for, or probable (associated with a specific diagnosis that is being evaluated, monitored, or treated as if it exists) are acceptable and can be coded in the inpatient setting, when documented at the
time of discharge.
Thank you,
Margi Perkins RN BSN
CDI Specialist
available via tiger text
Please use your independent medical judgment in providing your response.
--- NOTE | 2024-11-04 09:36 | PN.CDI ---
CDI
- -
CDI:
Physician Documentation Request
Admit Date: 11/01/24 19:00
Dear Doctor Elli,
Clinical Indicators:
Patient admitted with RML Pneumonia and COPD exacerbation.
11/03 note/assessment:
-'...pt did not mind showing me her clavicles and shoulders which revealed moderate muscle wasting at
shoulders, mild muscle wasting at clavicles, and mild fat loss at her triceps after doing tricep pinch.'
-'As per ASPEN/AND pt meets criteria for mild protein calorie malnutrition in the context of chronic illness with
NFPE findings of both moderate muscle wasting at shoulders and mild fat loss at triceps.'
Based on the above information and your assessment, which of the following most accurately represents the patient's nutritional status?
Mild Protein Calorie Malnutrition
Other (please specify)
[place] Criteria ([facility] Hospitalist 2017)
2 or more criteria must be present for either
non severe or severe malnutrition
Note that the criteria differs related to the
presence of an acute or chronic illness
Acute Illness Chronic Illness
Energy Intake Non Severe: <75% for >7 days Non Severe: <75% for >1 month
Severe: <50% for >5 days Severe: <75% for >1 month
Weight Loss Non Severe: 1-2% over 1 week Non Severe: 5% over 1 month
5% over 1 month 7.5% over 3 months
7.5% over 3 months 10% over 6 months
1 year N/A 20% over 1 year
Severe: >2% over 1 week Severe: >5% over 1 month
>5% over 1 month >7.5% over 3 months
>7.5% over 3 months >10% over 6 months
1 year N/A >20% over 1 year
Body Fat Non Severe: Mild Decrease Non Severe: Mild Loss
Severe: Moderate Decrease Severe: Severe Loss
Muscle Mass Non Severe: Mild Decrease Non Severe: Mild Loss
Severe: Moderate Decrease Severe: Severe Loss
Fluid Accumulation Non Severe: Mild Accumulation Non Severe: Mild Accumulation
Severe: Moderate to severe Severe: Moderate to severe
accumulation accumulation
Reduced Assistant Infant Toddler Teacher Strength Non Severe: N/A Non Severe: N/A
Severe: Measurably reduced Severe: Measurably reduced
Additional criteria that can be used to Determine if Mild or Moderate Malnutrition (Merck Manual 2018)
Mild Moderate Severe
Albumin gm/dl <3.0 gm/dl <2.5 gm/dl <2.0 gm/dl
Pre Albumin mg/dl <15 gm/dl <10 mg/dl <5.0 mg/dl
BMI <18.5 <17 <16
Use of terms such as suspected, likely, concern for, or probable (associated with a specific diagnosis that is being evaluated, monitored, or treated as if it exists) are acceptable and can be coded in the inpatient setting, when documented at the
time of discharge.
Thank you,
Margi Perkins RN BSN
CDI Specialist
available via tiger text
Please use your independent medical judgment in providing your response.
--- NOTE | 2024-11-04 10:35 | W.PN.HOSP.TC ---
Addendum entered and electronically signed by Camilla Calloway MD 11/05/24 10:55:
Mild Protein Calorie Malnutrition
-appreciate dietary
Sepsis, POA
continue antibiotics; sepsis resolved
acute hypoxic resp failure - resolved
requires O2 with ambulation - had O2 at home
Original Note:
Today's Communication/Plan
-
PT/OT
home O2 testing
expect ready for DC tomorrow
Assessment / Plan
Assessment / Plan
Right middle lobe pneumonia
# COPD exacerbation
#chronic hypoxic respiratory failure, patient follows with Dr. Nevarez outpatient. Per patient she is supposed to use oxygen all the time however she is not using
-Chest x-ray with mild right middle lobe interstitial pneumonia
-Continue DuoNebs
-Continue IV Decadron -- transition to prednisone tomorrow
-Continue with ceftriaxone and doxycycline (day 3). Once done with this treatment then can go back to azithromycin daily
-leukocytosis resolved now up likely 2/2 steroids
-COVID, flu negative; Legionella/Strep negative
On O2, wean oxygen as tolerated - home O2 testing today
#diarrhea likely gastroenteritis
Appears now improving
-stool for culture, c diff, norovirus
#History of hyperlipidemia
Continue statin
Suspected cognitive impairment, no documented history of dementia
On donepezil
Monitor for behavioral change
Anxiety
On BuSpar as needed
#Scoliosis with chronic back pain
DVT prophylaxis�Lovenox
Full code
Anticipated Discharge: 24 - 48 hours
Subjective/Interval History
-
Date of Service: November 04, 2024
states she is fatigued
breathing appears stable
has some right lower back pain
Objective Data
-
Labs:
Laboratory Results
11/04/24
05:37
WBC 13.9 H
Hgb 13.6
Hct 41.7
Plt Count 580 H D
Sodium 137
Potassium 4.8
Chloride 102
Carbon Dioxide 24
BUN 26 H
Creatinine 0.6
Glucose 106 H
Calcium 11.7 H
Vital Signs:
Vital Signs
Temp Pulse Resp BP Pulse Ox
98.0 F 84 16 133/98 98
11/04/24 07:05 11/04/24 07:27 11/04/24 07:27 11/04/24 07:05 11/04/24 07:27
I&O
11/03/24 11/04/24 11/05/24
06:59 06:59 06:59
Intake Total 240 / 240 900 / 900
Balance 240 / 240 900 / 900
Review of Systems
-
History Source: Patient
All other systems: Reviewed and negative
Physical Exam
-
General: No Apparent Distress
HEENT: PERRLA
Respiratory: Decreased Breath Sounds; Negative Wheezes
Cardiac: Regular Rhythm; Negative S1/S2
GI: Soft and Nontender
Musculoskeletal: No Edema
Skin: Warm and Dry; Negative Rash
Neuro: AO x 3
Psych: Calm
Data Reviewed
-
Diagnostic Radiology: Report Reviewed by me
Labs: Labs Reviewed by me
[2024-11-04 11:28] VITALS: BP 164/70; PULSE 72; O2SAT 97
--- NOTE | 2024-11-04 12:01 | CM ---
Addendum entered by Linda Delgado 11/04/24 12:22:
[facility] referrals sent via [facility] to [facility]
CM will follow up with Carie ferrer, via phone # [phone] with referral responses and site selection
Original Note:
Initial assessment and Discharge planning completed with daughter/primary contact, Carie Bunch, via phone # [phone]
Pharmacy verified [facility] @ [address] [place] [address]
Family Physician verified: Yolis Reggie # [phone]; Admissions notified to update chart
Daughter reported that her mother lives alone in a 1st floor apartment; no steps to enter; bath has tub w/ shower; commode over the toilet
Daughter reported that prior to recent illness mother was independent with personal care; able to feed self; recently stopped driving; ambulates with can when she goes out. Patient was diagnosed with Alzheimers in February/March 2024. Does not always
remember to take her medications. Is supposed to wear Oxygen 2-3 liter continuously but wears PRN instead
No history of SNF or Home Health utilization
Transportation to be determined
Explained to daughter that PT recommended SNF; SNF site options reviewed; [facility]
Plan: Discharge to SNF pending bed availability and AUTH approval
[2024-11-04 15:08] VITALS: BP 134/82
--- NOTE | 2024-11-04 15:15 | PTCARENOTE ---
patient c/o of right lower back pain today. medicated with PRN Tylenol and k-pad applied as ordered to right lower back with some relief. patient able to sleep some today, feels weak, assist x1 from bed to BR, video monitor maintained for patient
safety, vss, will continue to monitor.
[2024-11-04] MEDS: LOVENOX 30 MG SC (17:41)
[2024-11-04] MEDS: ARICEPT 10 MG PO (21:55)
[2024-11-04] MEDS: NON-FORMULARY ITEM 1 DROP LEFT EYE (21:56)
[2024-11-04 23:00] VITALS: BP 168/86
--- NOTE | 2024-11-05 02:09 | DOWNTIME ---
There was a [employer] Downtime on 11/05/2024 from 0100 to 11/05/2023 at 0205 . Downtime documentation of patient's care, including medication administrations, has been reconciled in the electronic record per guidelines. Refer to the
patient's paper chart under the miscellaneous tab to see printed paper medication records and downtime forms.
[2024-11-05 06:24] LABS: % Basophils 0.8 % (0-2); % Immature Granulocytes 4.2 % (0-0.5); % Lymphocytes 5.3 % (20.5-51.1); % Monocytes 13.4 % (1.7-9.3); % Neutrophils 76.3 % (42.2-75.2); Absolute Basophils 0.1 10^3/uL (0-0.2); Absolute Immature Granulocytes 0.4 10^3/uL (0-0.05); Absolute Lymphocytes 0.5 10^3/uL (1.2-3.4); Absolute Monocytes 1.3 10^3/uL (0.1-0.6); Absolute Neutrophils 7.6 10^3/uL (1.4-6.5); Hematocrit 38.9 % (37.0-47.0); Hemoglobin 12.8 g/dL (12.0-16.0); Mean Corp Hgb Conc. 32.9 g/dL (33.0-37.0); Mean Corpuscular Hgb 30.8 pg (27.0-31.0); Mean Corpuscular Volume 93.5 fL (81.0-99.0); Mean Platelet Volume 9.5 fL (7.4-10.4); Nucleated Red Blood Cells % 0 %; Platelet Count 469 10^3/uL (130-400); Red Blood Cell Count 4.16 10^6/uL (4.20-5.40)
[2024-11-05 06:47] LABS: Blood Urea Nitrogen 24 mg/dl (7-17); Calcium 11.3 mg/dl (8.4-10.2); Carbon Dioxide 29 mmol/L (22-30); Chloride 102 mmol/L (98-107); Estimated Creatinine Clearance 45 ml/min; Glucose 97 mg/dl (70-99); Potassium 5.1 mmol/L (3.5-5.1); Sodium 137 mmol/L (135-145); eGFR > 60.00
[2024-11-05 07:30] VITALS: BP 148/74
[2024-11-05] MEDS: PULMICORT 0.5 MG INH (07:31)
[2024-11-05] MEDS: DUONEB 3 ML INH ×4 (07:31→21:09)
[2024-11-05] MEDS: VIBRAMYCIN 100 MG PO ×2 (08:56→21:43)
[2024-11-05] MEDS: MUCINEX 1200 MG PO ×2 (08:56→21:43)
[2024-11-05] MEDS: DELTASONE 40 MG PO (08:56)
[2024-11-05] MEDS: FEOSOL 325 MG PO (08:56)
[2024-11-05] MEDS: LIPITOR 20 MG PO (08:56)
--- NOTE | 2024-11-05 10:52 | W.PN.HOSP.TC ---
Today's Communication/Plan
-
OK for DC today
Assessment / Plan
Assessment / Plan
Right middle lobe pneumonia
# COPD exacerbation
#chronic hypoxic respiratory failure, patient follows with Dr. Nevarez outpatient. Per patient she is supposed to use oxygen all the time however she is not using
-Chest x-ray with mild right middle lobe interstitial pneumonia
-Continue DuoNebs
-Continue IV Decadron -- transition to prednisone today
-Continue with ceftriaxone and doxycycline (day 4/5). Once done with this treatment then can go back to azithromycin daily
-leukocytosis resolved now up likely 2/2 steroids
-COVID, flu negative; Legionella/Strep negative
On O2, wean oxygen as tolerated - home O2 testing today
#diarrhea likely gastroenteritis
Appears now improving
-stool for culture, c diff, norovirus - not collected, no further diarrhea
#History of hyperlipidemia
Continue statin
Suspected cognitive impairment, no documented history of dementia
On donepezil
Monitor for behavioral change
Anxiety
On BuSpar as needed
#Scoliosis with chronic back pain
DVT prophylaxis�Lovenox
Full code
Anticipated Discharge: Today
Subjective/Interval History
-
Date of Service: November 05, 2024
some low back pain
wants to be repositioned in bed
Objective Data
-
Labs:
Laboratory Results
11/05/24
05:36
WBC 10.0
Hgb 12.8
Hct 38.9
Plt Count 469 H
Sodium 137
Potassium 5.1
Chloride 102
Carbon Dioxide 29
BUN 24 H
Creatinine 0.7
Glucose 97
Calcium 11.3 H
Vital Signs:
Vital Signs
Temp Pulse Resp BP Pulse Ox
97.5 F 88 16 148/74 96
01/22/25 07:30 11/05/24 07:33 11/05/24 07:33 11/05/24 07:30 11/05/24 07:30
I&O
11/04/24 11/05/24 11/06/24
06:59 06:59 06:59
Intake Total 900 / 900 900 / 900 960 / 960
Balance 900 / 900 900 / 900 960 / 960
Review of Systems
-
History Source: Patient
All other systems: Reviewed and negative
Physical Exam
-
General: No Apparent Distress
HEENT: PERRLA
Respiratory: Decreased Breath Sounds; Negative Wheezes
Cardiac: Regular Rhythm; Negative S1/S2
GI: Soft and Nontender
Musculoskeletal: No Edema
Skin: Warm and Dry; Negative Rash
Neuro: AO x 3
Psych: Calm
Data Reviewed
-
Diagnostic Radiology: Report Reviewed by me
Labs: Labs Reviewed by me
--- NOTE | 2024-11-05 11:00 | W.DS.TRANS ---
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
-
Discharge Instructions:
Discharge Diagnosis/Procedures community acquired pneumonia, COPD exacerbation
Diet Regular
Activity As tolerated
Driving Restrictions No driving
Bathing Restrictions None
Other Services PT,OT
Instructions:
Stand-Alone Forms:
Changes to Home Medications: Yes
Discharge Medications:
DC Medications w/original date entered in [employer]
albuterol sulfate 90 mcg/actuation aerosol inhaler (Ventolin HFA) 2 puff inhalation R Q4HPRN PRN wheezing 05/05/17
ascorbic acid (vitamin C) 500 mg tablet (Vitamin C) 500 mg PO DAILY Supplement 09/09/22
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
cholecalciferol (vitamin D3) 25 mcg (1,000 unit) tablet (Vitamin D3) 25 mcg PO DAILY Supplement 09/09/22
umeclidinium 62.5 mcg/actuation blister powder for inhalation (Incruse Ellipta) 1 inh inhalation R DAILY Lung/breathing issues 09/09/22
albuterol sulfate 2.5 mg/3 mL (0.083 %) solution for nebulization 2.5 mg inhalation R BIDPRN PRN sob 12/17/23
budesonide 0.5 mg/2 mL suspension for nebulization 0.5 mg inhalation R DAILY 12/17/23
cyanocobalamin (vitamin B-12) 1,000 mcg tablet 1,000 mcg PO DAILY 12/17/23
ferrous sulfate 325 mg (65 mg iron) tablet 325 mg PO DAILY 12/17/23
prednisone 1 mg tablet 2 mg PO MOWEFR 12/17/23
quercetin 500 mg capsule 500 mg PO DAILY 12/17/23
vitamin K2 (MK-4) 100 mcg tablet 100 mcg PO DAILY 12/17/23
rzmpkgg-bxyfzorilznsv-qrcwfjhp 250 mg-250 mg-65 mg tablet (Excedrin Migraine) 1 tab PO DAILY 11/01/24
atorvastatin 20 mg tablet 20 mg PO DAILY 11/01/24
buspirone 7.5 mg tablet 7.5 mg PO DAILYPRN PRN anxiety 11/01/24
donepezil 10 mg tablet 10 mg PO HS 11/01/24
fluticasone furoate 200 mcg-vilanterol 25 mcg/dose inhalation powder (Breo Ellipta) 1 inh inhalation R DAILY 11/01/24
ibuprofen 200 mg tablet (Advil) 400 mg PO Q8HPRN PRN mild pain 11/01/24
therapeutic multivitamin 1 tab PO DAILY 11/01/24
zinc sulfate 50 mg zinc (220 mg) tablet 50 mg PO DAILY 11/01/24
bimatoprost 0.01 % eye drops (Lumigan) 1 drp LEFT EYE HS 11/04/24
Home Medication Changes
You have two more pills of Cefdinir and Doxycycline (last dose tomorrow morning 11/06)
Continue Prednisone taper:
40mg x 2 days; 30mg x 3 days; 20mg x 3 days; 10mg x 3 days
You may resume Azithromycin daily on 11/07/24
Addition of Mucinex
Pending Results: No
[2024-11-05] MEDS: TYLENOL 1000 MG PO (11:33)
[2024-11-05 14:38] VITALS: PULSE 74; O2SAT 99
--- NOTE | 2024-11-05 15:08 | CM ---
CM reviewed chart, [facility] no beds at this time, [facility] referral palced, no response. [facility] able to offer patient a bed for tomorrow. CM spoke with patients daughter, Carie, agreeable to [facility] for rehab. IMM verbally reviewed,
daughter agreeable to discharge plan. Daughter reports patient will need ambulance transport, forms on chart. Auth submitted through [employer]: [id number], approved 11/06-11/12, Tiffany at [facility] updated. CM will continue to follow for all
discharge planning needs.
Plan; [facility] SNF tomorrow, transport forms on chart, will need transport scheduled.
[2024-11-05 15:50] VITALS: BP 128/73
[2024-11-05] MEDS: LOVENOX 30 MG SC (21:42)
[2024-11-05] MEDS: ARICEPT 10 MG PO (21:43)
[2024-11-05] MEDS: NON-FORMULARY ITEM 1 DROP LEFT EYE (21:44)
[2024-11-05] MEDS: TYLENOL 650 MG PO (22:19)
[2024-11-05 23:00] VITALS: BP 125/98
[2024-11-06] MEDS: ROCEPHIN 1000 MG IV (00:51)
[2024-11-06] MEDS: STERILE WATER FOR INJECTION 10 ML IV (00:51)
[2024-11-06] MEDS: PULMICORT 0.5 MG INH (07:14)
[2024-11-06 07:30] VITALS: BP 145/79
[2024-11-06] MEDS: MUCINEX 1200 MG PO (08:03)
[2024-11-06] MEDS: LIPITOR 20 MG PO (08:03)
[2024-11-06] MEDS: VIBRAMYCIN 100 MG PO (08:03)
[2024-11-06] MEDS: FEOSOL 325 MG PO (08:03)
[2024-11-06] MEDS: DELTASONE 40 MG PO (08:03)
[2024-11-06] MEDS: TYLENOL 650 MG PO (08:03)
--- NOTE | 2024-11-06 09:59 | W.PN.HOSP.TC ---
Today's Communication/Plan
-
DC today
Assessment / Plan
Assessment / Plan
Right middle lobe pneumonia
# COPD exacerbation
#chronic hypoxic respiratory failure, patient follows with Dr. Nevarez outpatient. Per patient she is supposed to use oxygen all the time however she is not using
-Chest x-ray with mild right middle lobe interstitial pneumonia
-Continue DuoNebs
-s/p IV Decadron - DC on quick prednisone taper (patient with confusion on steroids)
-completed antibiotic course in hospital
-leukocytosis resolved now up likely 2/2 steroids
-COVID, flu negative; Legionella/Strep negative
On O2, wean oxygen as tolerated - home O2 testing today
#diarrhea likely gastroenteritis
Appears now improving
-stool for culture, c diff, norovirus - not collected, no further diarrhea
#History of hyperlipidemia
Continue statin
Suspected cognitive impairment, no documented history of dementia
On donepezil
Monitor for behavioral change
Anxiety
On BuSpar as needed
#Scoliosis with chronic back pain
DVT prophylaxis�Lovenox
Full code
Anticipated Discharge: Today
Subjective/Interval History
-
Date of Service: November 06, 2024
no new complaints
Objective Data
-
Vital Signs:
Vital Signs
Temp Pulse Resp BP Pulse Ox
97.8 F 92 18 145/79 93
11/06/24 07:30 11/06/24 07:30 11/06/24 07:30 11/06/24 07:30 11/06/24 07:30
I&O
11/05/24 11/06/24 11/07/24
06:59 06:59 06:59
Intake Total 900 / 900 1680 / 1680
Balance 900 / 900 1680 / 1680
Review of Systems
-
History Source: Patient
All other systems: Reviewed and negative
Physical Exam
-
General: No Apparent Distress
HEENT: PERRLA
Respiratory: Decreased Breath Sounds; Negative Wheezes
Cardiac: Regular Rhythm; Negative S1/S2
GI: Soft and Nontender
Musculoskeletal: No Edema
Skin: Warm and Dry; Negative Rash
Neuro: AO x 3
Psych: Calm
Data Reviewed
-
Diagnostic Radiology: Report Reviewed by me
Labs: Labs Reviewed by me
--- NOTE | 2024-11-06 10:07 | W.DS.TRANS ---
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
-
Discharge Instructions:
Discharge Diagnosis/Procedures community acquired pneumonia, COPD exacerbation
Diet Regular
Activity As tolerated
Driving Restrictions No driving
Bathing Restrictions None
Other Services PT,OT
Instructions:
Stand-Alone Forms:
Changes to Home Medications: Yes
Discharge Medications:
DC Medications w/original date entered in [employer]
albuterol sulfate 90 mcg/actuation aerosol inhaler (Ventolin HFA) 2 puff inhalation R Q4HPRN PRN wheezing 05/05/17
ascorbic acid (vitamin C) 500 mg tablet (Vitamin C) 500 mg PO DAILY Supplement 09/09/22
azithromycin 250 mg tablet 250 mg PO DAILY rn long term care 09/09/22
cholecalciferol (vitamin D3) 25 mcg (1,000 unit) tablet (Vitamin D3) 25 mcg PO DAILY Supplement 09/09/22
umeclidinium 62.5 mcg/actuation blister powder for inhalation (Incruse Ellipta) 1 inh inhalation R DAILY Lung/breathing issues 09/09/22
albuterol sulfate 2.5 mg/3 mL (0.083 %) solution for nebulization 2.5 mg inhalation R BIDPRN PRN sob 12/17/23
budesonide 0.5 mg/2 mL suspension for nebulization 0.5 mg inhalation R DAILY 12/17/23
cyanocobalamin (vitamin B-12) 1,000 mcg tablet 1,000 mcg PO DAILY 12/17/23
ferrous sulfate 325 mg (65 mg iron) tablet 325 mg PO DAILY 12/17/23
prednisone 1 mg tablet 2 mg PO MOWEFR 12/17/23
quercetin 500 mg capsule 500 mg PO DAILY 12/17/23
vitamin K2 (MK-4) 100 mcg tablet 100 mcg PO DAILY 12/17/23
nhtowza-kpdlwysrdfoiz-alxhvlmm 250 mg-250 mg-65 mg tablet (Excedrin Migraine) 1 tab PO DAILY 11/01/24
atorvastatin 20 mg tablet 20 mg PO DAILY 11/01/24
buspirone 7.5 mg tablet 7.5 mg PO DAILYPRN PRN anxiety 11/01/24
donepezil 10 mg tablet 10 mg PO HS 11/01/24
fluticasone furoate 200 mcg-vilanterol 25 mcg/dose inhalation powder (Breo Ellipta) 1 inh inhalation R DAILY 11/01/24
therapeutic multivitamin 1 tab PO DAILY 11/01/24
zinc sulfate 50 mg zinc (220 mg) tablet 50 mg PO DAILY 11/01/24
bimatoprost 0.01 % eye drops (Lumigan) 1 drp LEFT EYE HS 11/04/24
guaifenesin 600 mg tablet, extended release 12 hr 1,200 mg (2 x 600 mg) PO Q12 #30 tabs 11/05/24
prednisone 10 mg tablet 10 mg PO DIRECTED #13 tabs 11/05/24
Home Medication Changes
You completed your antibiotic course of IV Ceftriaxone/Doxycycline in the hospital
Continue Prednisone taper:
Take 30mg x 2 days; 20mg x 2 days; 10mg x 2 days; 5 mg x 2 days then resume home prednisone dosing
Pending Results: No
--- NOTE | 2024-11-06 10:12 | CM ---
Please call report [phone] fax [phone]. Patient daughter Carie contacted and is supportive of transfer to SNF today. Patient will need ambulance transfer. CM spoke with Tiffany at SNF and update with auth number provided to Tiffany.
Patient is for discharge. CM will continue to follow for discharge planning needs.
Plan; SNF
--- NOTE | 2024-11-06 13:17 | PTCARENOTE ---
Report given to Kailtin FRAZIER at rehab facility.
--- NOTE | 2024-11-06 14:01 | W.DCSUMMARY ---
Discharge Summary
Discharge Data
Date of Admission: 11/01/24
Date of Discharge: 11/06/24
-
Pending Results: No
Hospital Course
Discharging Physician : Dr. Camilla Calloway
Disposition : SNF
Primary care physician : Dr. Tiesha Paredes
Principal Discharge diagnosis : COPD Exacerbation, Community Acquired Pneumonia
Hospital Course :
Ms. Zaira Cid is a 83 yo woman with hx dementia, COPD presents to the ER with cough, fever up to 101 night prior. Triage vitals stable. Flu and covid negative. CXR with right middle lobe pneumonia. She was admitted to medicine and started on
treatment for COPD and pneumonia. Respiratory status improved. She completed 5 day course of antibiotics in-house and is discharged on a prednisone taper back to home dose Prednisone 2mg MOWEFR. She is discharged to SNF.
Time spent on discharge was 31 minutes.
Important imaging findings :
CXR
IMPRESSION:
Mild right middle lobe interstitial pneumonia
Procedure findings :
Discharge Plan
-
Patient Disposition: Jail/SNF
Discharge Diagnosis/Procedures: community acquired pneumonia, COPD exacerbation
Diet: Regular
Activity: As tolerated
Driving Restrictions: No driving
Bathing Restrictions: None
Other Services: PT and OT
Referrals:
Tiesha Paredes, DO [Family Provider] - in less than 1 week
Additional Discharge Medication Instructions: You completed your antibiotic course of IV Ceftriaxone/Doxycycline in the hospital
Continue Prednisone taper:
Take 30mg x 2 days; 20mg x 2 days; 10mg x 2 days; 5 mg x 2 days then resume home prednisone dosing
You may resume Azithromycin daily
Prescriptions:
New
guaifenesin 600 mg Tablet Extended Release 12hr
1,200 mg PO Q12 Qty: 30 0RF
prednisone 10 mg tablet
10 mg PO DIRECTED Qty: 13 0RF
Rx Instructions:
Take 30mg x 2 days; 20mg x 2 days; 10mg x 2 days; 5 mg x 2 days then resume home prednisone dosing
Continued
albuterol sulfate [Ventolin HFA] 90 MCG/PUFF HFA aerosol inhaler
2 puff inhalation R Q4HPRN PRN (Reason: wheezing)
Incruse Ellipta 62.5 mcg/actuation Blister With Device
1 inh INHALATION R DAILY
ascorbic acid (vitamin C) [Vitamin C] 500 mg Tablet
500 mg PO DAILY
cholecalciferol (vitamin D3) [Vitamin D3] 25 mcg (1,000 unit) Tablet
25 mcg PO DAILY
azithromycin 250 MG tablet
250 mg PO DAILY
albuterol sulfate 2.5 mg /3 mL (0.083 %) solution for nebulization
2.5 mg inhalation R BIDPRN PRN (Reason: sob)
cyanocobalamin (vitamin B-12) 1,000 mcg Tablet
1,000 mcg PO DAILY
ferrous sulfate 325 mg (65 mg iron) Tablet
325 mg PO DAILY
budesonide 0.5 mg/2 mL suspension for nebulization
0.5 mg inhalation R DAILY
vitamin K2 (MK-4) 100 mcg Tablet
100 mcg PO DAILY
quercetin 500 mg Capsule
500 mg PO DAILY
atorvastatin 20 mg Tablet
20 mg PO DAILY
donepezil 10 mg Tablet
10 mg PO HS
therapeutic multivitamin Tablet
1 tab PO DAILY
zinc sulfate 50 mg zinc (220 mg) Tablet
50 mg PO DAILY
buspirone 7.5 mg Tablet
7.5 mg PO DAILYPRN PRN (Reason: anxiety)
Patient Comments:
11/01/24: Patient rarely takes this medication.
Excedrin Migraine 250-250-65 mg Tablet
1 tab PO DAILY
fluticasone furoate-vilanterol [Breo Ellipta] 200-25 mcg/dose Blister With Device
1 inh INHALATION R DAILY
Lumigan 0.01 % Drops
1 drp LEFT EYE HS
Held
prednisone 1 mg tablet
2 mg PO MOWEFR
Hold Instructions: Resume on 11/14/24.
Discontinued
ibuprofen [Advil] 200 mg Tablet
400 mg PO Q8HPRN PRN (Reason: mild pain)
Discharge Orders:
Discharge Patient (As Directed); Ordered 11/06/24
Ordered By: Camilla Calloway
Discharge Date and Time
Print Language: CAPE VERDEAN
== END 2024-11-06 14:26 | DRG 871 ==
LOC: 3 WEST ACU 19:00
PROVIDERS: Physician Assistant; Registered Nurse; Student in an Organized Health Care Education/Training Program; ADMITTING PHYSICIAN Internal Medicine; ATTENDING PHYSICIAN Student in an Organized Health Care Education/Training Program; EMERGENCY PHYSICIAN Emergency Medicine; FAMILY PHYSICIAN Family Medicine
DX: A41.9 Sepsis, unspecified organism (principal); J96.21 Acute and chronic respiratory failure with hypoxia; J44.0 Chronic obstructive pulmonary disease with (acute) lower respiratory infection; E44.1 Mild protein-calorie malnutrition; F03.94 Unspecified dementia, unspecified severity, with anxiety; J96.11 Chronic respiratory failure with hypoxia; J44.1 Chronic obstructive pulmonary disease with (acute) exacerbation; E78.00 Pure hypercholesterolemia, unspecified; E83.52 Hypercalcemia; G89.29 Other chronic pain; K52.9 Noninfective gastroenteritis and colitis, unspecified; M19.90 Unspecified osteoarthritis, unspecified site; M41.9 Scoliosis, unspecified; M81.0 Age-related osteoporosis without current pathological fracture; Z79.899 Other long term (current) drug therapy; Z87.891 Personal history of nicotine dependence; Z20.822 Contact with and (suspected) exposure to COVID-19; Z68.21 Body mass index [BMI] 21.0-21.9, adult; Z79.82 Long term (current) use of aspirin; Z79.52 Long term (current) use of systemic steroids
CPT/HCPCS: 71046; 80048; 80053; 83605; 84484; 85025; 87040; 87449; 87502; 87811; 87899; 93005; 94640; 96361; 96374; 96375; 97163; 97167; 97530; 99285

== ENCOUNTER → 2024-12-04 15:22 | Outpatient (REF) | payer OTHER, SELFPAY | LOC: RAD 15:22 | PROVIDERS: ATTENDING PHYSICIAN Internal Medicine Critical Care Medicine | DX: R91.1 Solitary pulmonary nodule (principal) | CPT/HCPCS: 71250 ==

== ENCOUNTER → 2025-05-06 12:41 | Outpatient (REF) | payer OTHER, SELFPAY | LOC: HWCARD 12:41 | PROVIDERS: ATTENDING PHYSICIAN Family Medicine; REFERRING PHYSICIAN Physician Assistant Medical | DX: G30.9 Alzheimer's disease, unspecified (principal) | CPT/HCPCS: 93005 ==

== ENCOUNTER 2025-10-04 01:17 | Inpatient (IN) | payer OTHER, SELFPAY ==
[2025-10-03] VITALS (8 sets, daily range): BP systolic 153–192; BP diastolic 71–108
--- NOTE | 2025-10-03 19:44 | ED.MUSCINJ ---
HPI-Injury
General
Chief Complaint: Fall
Source: patient
Exam Limitations: none
Time Seen by Provider: 10/03/25 19:36
History of Present Illness-Injury
Initial Injury comments:
84-year-old female not anticoagulated presents via EMS from fall at home. This was a witnessed fall. She fell forward striking her face on the floor and landing on her left wrist. She notes left wrist deformity and pain. She also notes a
laceration to the upper lip. No no loss of conscious. She denies neck or back pain. No other complaints
Past History
Past History
ED Past Medical History: COPD, Hypercholesterolemia and Other (Chronic bronchitis, UTI, PNA, )
ED Past Surgical History: Cholecystectomy and Other (Cataracts)
Social History
Tobacco: Former smoker
Alcohol: Former
Personal:
Living: with family
Phy Exam
Physical Exam
Physical Exam:
General: Well-appearing female no acute respiratory distress
HEENT: Normal cephalic laceration upper lip measuring 1 cm mostly on the mucosal surface dentition appears well pupils equal round reactive to light
Heart: Regular rate and rhythm lungs: Clear no wheeze
Musculoskeletal exam: Spine is nontender. The left wrist is swollen and deformed and tender. The right ankle is swollen and tender
Neurologic exam: Alert and oriented no facial asymmetry. Good strength to the upper lower extremities
Injury Course
Orders/Labs/Results
Orders:
Orders
10/03/25 19:42
CT Cervical Spine W/o Iv Contr Urgent
Comment:
Reason For Exam: fall
CT Head W/o Iv Contrast Urgent
Comment:
Reason For Exam: fall
HYDROmorphone [Dilaudid] 0.5 mg IV NOW STA
CR Ankle - Right Min 3 Views * Urgent
Comment:
Reason For Exam: fall
CR Wrist - Left Min 3 Views Urgent
Comment:
Reason For Exam: fall
10/03/25 21:06
HYDROmorphone [Dilaudid] 0.5 mg .ROUTE .STK-MED ONE
10/03/25 21:08
HYDROmorphone [Dilaudid] 0.5 mg IV NOW STA
10/03/25 22:19
Sling Left-Treatment ONCE
10/03/25 22:29
Ondansetron Injectable [Zofran] 4 mg .ROUTE .STK-MED ONE
10/03/25 22:33
Ondansetron Injectable [Zofran] 4 mg IV NOW STA
MDM/Problems Addressed
Differential Diagnosis Includes:
Mechanical fall with head strike and left wrist pain. Will order x-rays of the left wrist CT head and cervical spine pending x-ray right ankle pending
*Pulse Oximetry
SaO2: 96
Patient hypoxic: no
*Critical Care Note
Total Time (30-74mins, 75-104mins- exclusive of procedures): Not Applicable
Update Note
Update Note:
I personally visualized x-rays of the left wrist right ankle and CT of the head and cervical spine. The left wrist has a slightly angulated and impacted distal radius and ulnar fracture. I placed a sugar-tong splint using cast padding 2 inch OCL
and Sameer bandages in a sugar-tong fashion. Gentle longitudinal traction was applied as well as dorsal fracture during the splint application. The wound on the lip was closed with sutures. It was anesthetized with 1% lidocaine. This was then
irrigated with saline and closed with four 6-0 Vicryl sutures in a simple erupted fashion. Daughter is now in the room. Sounds like they have been trying to get the patient to move houses right now although she lives independently. As the exam
and time in the room progress her dementia becomes more evident. She repeatedly asked the same question about her arm and her lip. I do not think she is a good candidate for discharge. Feel she would benefit from case management involvement with
potential placement and orthopedic consultation.
ED Attending Note
-
Portions of this chart may have been created with voice recognition software.� Occasional wrong word or��sound alike� substitutions may have occurred due to the inherent limitations of voice recognition software.
Discharge Plan
Departure
Patient Disposition: Admit
Date of Disposition: 10/03/25
Time of Disposition: 23:34
Presentation/result/management discussed w/ accepting MD/DO: Hospitalist
Discharge Problem:
Fall, Distal radius fracture, left, Laceration
Prescriptions:
No Action
albuterol sulfate [Ventolin HFA] 90 MCG/PUFF HFA aerosol inhaler
2 puff inhalation R Q4HPRN PRN (Reason: wheezing)
Incruse Ellipta 62.5 mcg/actuation Blister With Device
1 inh INHALATION R DAILY
ascorbic acid (vitamin C) [Vitamin C] 500 mg Tablet
500 mg PO DAILY
cholecalciferol (vitamin D3) [Vitamin D3] 25 mcg (1,000 unit) Tablet
25 mcg PO DAILY
azithromycin 250 MG tablet
250 mg PO DAILY
albuterol sulfate 2.5 mg /3 mL (0.083 %) solution for nebulization
2.5 mg inhalation R BIDPRN PRN (Reason: sob)
cyanocobalamin (vitamin B-12) 1,000 mcg Tablet
1,000 mcg PO DAILY
prednisone 1 mg tablet
2 mg PO MOWEFR
ferrous sulfate 325 mg (65 mg iron) Tablet
325 mg PO DAILY
budesonide 0.5 mg/2 mL suspension for nebulization
0.5 mg inhalation R DAILY
vitamin K2 (MK-4) 100 mcg Tablet
100 mcg PO DAILY
quercetin 500 mg Capsule
500 mg PO DAILY
atorvastatin 20 mg Tablet
20 mg PO DAILY
donepezil 10 mg Tablet
10 mg PO HS
therapeutic multivitamin Tablet
1 tab PO DAILY
zinc sulfate 50 mg zinc (220 mg) Tablet
50 mg PO DAILY
buspirone 7.5 mg Tablet
7.5 mg PO DAILYPRN PRN (Reason: anxiety)
Patient Comments:
11/01/24: Patient rarely takes this medication.
Excedrin Migraine 250-250-65 mg Tablet
1 tab PO DAILY
fluticasone furoate-vilanterol [Breo Ellipta] 200-25 mcg/dose Blister With Device
1 inh INHALATION R DAILY
Lumigan 0.01 % Drops
1 drp LEFT EYE HS
guaifenesin 600 mg Tablet Extended Release 12hr
1,200 mg PO Q12 Qty: 30 0RF
prednisone 10 mg tablet
10 mg PO DIRECTED Qty: 13 0RF
Rx Instructions:
Take 30mg x 2 days; 20mg x 2 days; 10mg x 2 days; 5 mg x 2 days then resume home prednisone dosing
Referrals:
Samreen Leung CRNP [Family Provider, General]
Interventions
Interventions:
*General Assessment Last Done: 10/03/25 19:21
*Neglect/Abuse Screening Last Done: 10/03/25 19:40
*ED COVID-19 Vaccine History Last Done: 10/03/25 19:21
*ED Influenza Vaccine History Last Done: 10/03/25 19:21
[facility] Fall Risk Assessment Tool Last Done: 10/03/25 19:20
*Risk Screen - Suicide (C-SSRS) Last Done: 10/03/25 19:21
ED-Musculoskeletal Assessment Last Done: 10/03/25 19:30
ED- Neurological Assessment Last Done: 10/03/25 19:30
ED-Skin Assessment Last Done: 10/03/25 19:30
Discharge Date and Time
Print Language: ROMANIAN
[2025-10-03] MEDS: DILAUDID 0.5 MG IV ×2 (19:53→21:08)
[2025-10-03] MEDS: ZOFRAN 4 MG IV (22:33)
[2025-10-04] VITALS (25 sets, daily range): BP systolic 117–187; BP diastolic 55–112; BMI 20.9
--- NOTE | 2025-10-04 00:13 | HPS.HSE ---
Family Physician
-
Family Physician: YOLI Gayle
Chief Complaint
-
Fall
History of Present Illness
This is a 83-year-old female with past medical history significant for asthma, COPD, osteoporosis, anxiety who presents to the emergency department following a witnessed mechanical fall.
In the emergency department she was afebrile, blood pressure of 168/[address] of the head and C-spine shows no acute abnormalities. Ankle x-ray was unremarkable. A left wrist x-ray shows some mild deformity.
Medical History
Past Medical History
Past Medical History: Reports Other
Additional Past Medical History:
Asthma
Osteoporosis
COPD
Bronchitis
Arthritis
Hypercalcemia
Osteoporosis
Past Surgical History: Reports Other
Additional Past Surgical History:
Cholecystectomy
Social History
Tobacco: Former Smoker
Alcohol: Former
Drug: None
Living: With Family
Family History
Family History: Not pertinent
Allergies / Home Medications
Allergies reflects when Allergies were last updated in [employer].
Home Medications with original date entered in [employer]
Allergy/Medication List:
Allergies
Allergy/AdvReac Type Severity Reaction Status Date / Time
No Known Allergies Allergy Verified 11/01/24 12:11
Home Medications
albuterol sulfate 90 mcg/actuation aerosol inhaler (Ventolin HFA) 2 puff inhalation R Q4HPRN PRN wheezing 05/05/17
ascorbic acid (vitamin C) 500 mg tablet (Vitamin C) 500 mg PO DAILY Supplement 09/09/22
azithromycin 250 mg tablet 250 mg PO DAILY [facility] 09/09/22
cholecalciferol (vitamin D3) 25 mcg (1,000 unit) tablet (Vitamin D3) 25 mcg PO DAILY Supplement 09/09/22
umeclidinium 62.5 mcg/actuation blister powder for inhalation (Incruse Ellipta) 1 inh inhalation R DAILY Lung/breathing issues 09/09/22
albuterol sulfate 2.5 mg/3 mL (0.083 %) solution for nebulization 2.5 mg inhalation R BIDPRN PRN sob 12/17/23
budesonide 0.5 mg/2 mL suspension for nebulization 0.5 mg inhalation R DAILY 12/17/23
cyanocobalamin (vitamin B-12) 1,000 mcg tablet 1,000 mcg PO DAILY 12/17/23
ferrous sulfate 325 mg (65 mg iron) tablet 325 mg PO DAILY 12/17/23
prednisone 1 mg tablet 2 mg PO MOWEFR 12/17/23
Held on 11/05/24. Instructions: Resume on 11/14/24.
quercetin 500 mg capsule 500 mg PO DAILY 12/17/23
vitamin K2 (MK-4) 100 mcg tablet 100 mcg PO DAILY 12/17/23
edylfdb-dkmybagcbqtyd-ikqrnkyz 250 mg-250 mg-65 mg tablet (Excedrin Migraine) 1 tab PO DAILY 11/01/24
atorvastatin 20 mg tablet 20 mg PO DAILY 11/01/24
buspirone 7.5 mg tablet 7.5 mg PO DAILYPRN PRN anxiety 11/01/24
donepezil 10 mg tablet 10 mg PO HS 11/01/24
fluticasone furoate 200 mcg-vilanterol 25 mcg/dose inhalation powder (Breo Ellipta) 1 inh inhalation R DAILY 11/01/24
therapeutic multivitamin 1 tab PO DAILY 11/01/24
zinc sulfate 50 mg zinc (220 mg) tablet 50 mg PO DAILY 11/01/24
bimatoprost 0.01 % eye drops (Lumigan) 1 drp LEFT EYE HS 11/04/24
guaifenesin 600 mg tablet, extended release 12 hr 1,200 mg (2 x 600 mg) PO Q12 #30 tabs 11/05/24
prednisone 10 mg tablet 10 mg PO DIRECTED #13 tabs 11/05/24
Review of Systems
-
Constitutional: Reports No Symptoms
EENT: Reports No Symptoms
Respiratory: Reports No Symptoms
Cardiac: Reports No Symptoms
Abdomen/GI: Reports No Symptoms
: Reports No Symptoms
Musculoskeletal: Reports Joint Pain
Skin: Reports No Symptoms
Neurological: Reports No Symptoms
Endocrine: Reports No Symptoms
Hematologic/Lymphatic: Reports No Symptoms
Psych: Reports No Symptoms
Physical Exam
Vital Signs
Vital Signs
BP Pulse Ox
168/86 96
10/03/25 19:19 10/03/25 19:45
Physical Exam
General: Well Developed, Well Nourished and No Apparent Distress
HEENT: NormoCephalic, Moist mucous membranes and Atraumatic
Respiratory: Clear and Rhonchi
Cardiac: S1/S2 and Regular Rhythm; No Murmur or Rub
GI: Soft, Non Tender, Non Distended and Normal Bowel Sounds; No Organomegaly
Rectal: Deferred by Provider
Musculoskeletal: No Clubbing, No Cyanosis, No Edema and Other (Left wrist in splint)
Skin: No Rash
Neuro: AO x 3 and Nonfocal/grossly intact
Psych: Calm
Data Reviewed
-
Diagnostic Radiology: Image Personally Visualized and interpreted
CT Scan: Report Reviewed by me
Impression/Plan
-
IMPRESSION:
84-year-old with history of COPD asthma, hyperlipidemia osteoporosis who presents to the emergency department following a witnessed mechanical fall at home. She suffered and a fracture of the left wrist is nondisplaced and has minimal deformity.
She was placed in a splint but is unable to manage it by herself with the splint.
PLAN:
Mechanical fall with nondisplaced/minimally displaced left wrist fracture
� Admit to MedSurg
� Pain control
� Maintain splint
� Orthopedic consult
� No thinners
- Pt and CM
COPD/asthma�patient currently stable without any acute symptoms
� Continue albuterol nebs
� Continue her breo, incruse and budesonide
- continue maintenance prednisone 2mg daily
- continue maintenance erythromycin 250mg daily
Dementia
- continue memantine and donepizil
- continue buspirone
DVT PPX - SCDs for now
Code status - Full code
[2025-10-04] MEDS: DILAUDID 0.5 MG IV ×4 (01:26→21:06)
[2025-10-04] MEDS: TYLENOL 650 MG PO ×2 (05:49→13:14)
[2025-10-04] MEDS: SYMBICORT 160/4.5 MCG INHALER 2 PUFF INH ×2 (07:48→19:39)
[2025-10-04] MEDS: SPIRIVA RESPIMAT 2.5 MCG 2 PUFF INH (07:48)
[2025-10-04] MEDS: PULMICORT 0.5 MG INH (07:48)
--- NOTE | 2025-10-04 09:11 | CM ---
Addendum entered by Onelia Smith 10/04/25 09:16:
Consult completed
Original Note:
Chart reviewed and pt in ED
Spoke with dtr Carie on the phone
Pt lives alone in 1st floor apt no CHERYL
Dtr Carie lives around the corner and helps with transportation and meals
Ambulating with cane and walker
Independent with ADLs
DME cane, walker, tb with shower
raised toilet seat
Pt saw her neurologist last week and dtr planned to take her for outpt PT
PCP Tiesha Paredes
Pharmacy [facility]
hx of [facility]
hx of [facility] ( does NOT want to return per dtr)
DCP is to go to short term rehab close to [facility]
Dtr Joan in [place] is going to work PT so they are trying to have pt move in with Joan at the end of Nov, 2025
CM will continue to follow up for dcp needs
[2025-10-04] MEDS: LIPITOR 20 MG PO (09:48)
[2025-10-04] MEDS: NAMENDA 10 MG PO ×2 (09:48→19:54)
[2025-10-04] MEDS: THERAGRAN 1 TABLET PO (09:48)
[2025-10-04] MEDS: PROTONIX 40 MG PO (09:48)
--- NOTE | 2025-10-04 10:09 | CON.ORTHO ---
Consultation
-
Date/Time Consultation Requested: 10/04/2025 @ Unknown Time
Date/Time Consultation Performed: 10/04/2025 @ 9:45 AM
Requesting Provider: Nicolas Chan MD
Performing Provider: Barry Dooley PA-C for Dr. Duke Henning MD
Reason for Consultation: Left Wrist Fracture
Consultation - Orthopedics
History
Orthopedic Surgery Note
CC: Left Wrist Fracture s/p Mechanical Fall 10/03/2025
HPI: The patient is an 84-year-old [id number]-knxozbki female with a PMH significant for Asthma, COPD, Osteoporosis, Anxiety, and Cognitive impairment/dementia who presented to [facility] via EMS after sustaining a unwitnessed mechanical fall (FOOSH) at
home. She fell forward striking her face on the floor and landing on her left wrist. She reports immediate onset of left wrist pain with deformity noted. She also sustained a laceration to the upper lip. She reports pain localized to the left
wrist. She denies any LOC or any pain elsewhere. She she denies any anticoagulation use. X-ray of the left wrist was obtained and demonstrated a comminuted, displaced and mildly impacted intra-articular distal radius fracture with mild dorsal
angulation; additional comminuted fracture of the distal ulna was noted as well. She was placed into a sugar-tong splint and Orthopedic surgery was consulted for treatment recommendations moving forward. She denies any paresthesias.
PMH/PSH:
Past Medical History:
Asthma
Osteoporosis
COPD
Bronchitis
Arthritis
Hypercalcemia
Osteoporosis
Cognitive impairment/Dementia
Past Surgical History:
Cholecystectomy
Medications: Reviewed.
Family History: Family history was reviewed. Noncontributory.
Social history:
Tobacco: Former Smoker
Alcohol: Former
Drug: None
Living: Lives in apartment independently with family close by. Ambulates with assistance of cane/walker.
Review of Systems: 12-point review of systems obtained and negative except those mentioned in the HPI.
Exam
General appearance: Pleasant. No acute distress.
Head: Normocephalic. Upper lip laceration with sutures intact.
Nose: No lesions or discharge.
Skin: No obvious rashes or open wounds
Lungs: No audible wheezing, no cough or sputum production
Musculoskeletal:
LUE: Physical examination of the left wrist reveals a well-fitted sugar-tong splint. Capillary refill is less than 2 seconds and sensation is intact to light touch.
Imaging:
X-rays:
CR Wrist - LEFT Min 3 Views was obtained at [facility] on 10/04/2025 and was made available for my review today. Findings: Bones - There are comminuted, displaced and mildly impacted fracture of the distal radius and ulna with mild dorsal
angulation. The distal radial fracture extends to the articular surface. Joints - The radiocarpal joints appear intact. There is likely chondrocalcinosis. Degenerative changes of the radiocarpal and intercarpal joints. The scapholunate interval
appears upper limits of normal. Soft Tissue - Mild soft tissue swelling along the wrist. Impression: There is a comminuted, displaced and mildly impacted intra-articular distal radial fracture with mild dorsal angulation. There is an additional
comminuted fracture of the distal ulna.
Assessment: 84-year-old cpxur-[id number] female with acute comminuted, displaced and mildly impacted intra-articular distal radius fracture with dorsal angulation; acute comminuted fracture of the distal ulna noted as well.
Plan: Unfortunately, the patient has sustained an acute traumatic displaced intra-articular left distal radius fracture with dorsal angulation and comminution. Treatment options, including both nonoperative and operative approaches were discussed
with the patient and her daughter Carie. The risks, benefits, potential complications of each approach were discussed at length. After thorough discussion, shared decision was to proceed with operative fixation to improve overall alignment and
increase healing potential. We will plan for LEFT distal radius open reduction internal fixation under the direction of Dr. Foster 10/06/2025 as long as medically cleared to proceed. The expected post-operative course was reviewed.
Surgical and blood consents were obtained and scanned into the patient's chart. She will continue with sugar-tong splint strict NWB to LUE. Ice therapy and elevation for edema control. IV Abx (Ancef) OCTOR. NPO pMN Sunday10/05/2025. Case posted
with OR front office coordinator. Continue with pain medications as needed. Orthopedic surgery will continue to follow along.
Case discussed with Dr. Foster, primary team Dr. Demarcus Rg, and ryan Darnell (POA) at bedside
Allergies / Home Medications
Allergy/AdvReac Type Severity Reaction Status Date / Time
No Known Allergies Allergy Verified 11/01/24 12:11
�Medication �Instructions �Recorded
albuterol sulfate 90 mcg/actuation 2 puff inhalation R Q4HPRN PRN 05/05/17
aerosol inhaler (Ventolin HFA) wheezing
ascorbic acid (vitamin C) 500 mg 500 mg PO DAILY Supplement 09/09/22
tablet (Vitamin C)
azithromycin 250 mg tablet 250 mg PO DAILY watermelon inspector 09/09/22
cholecalciferol (vitamin D3) 25 25 mcg PO DAILY Supplement 09/09/22
mcg (1,000 unit) tablet (Vitamin
D3)
umeclidinium 62.5 mcg/actuation 1 inh inhalation R DAILY 09/09/22
blister powder for inhalation Lung/breathing issues
(Incruse Ellipta)
albuterol sulfate 2.5 mg/3 mL 2.5 mg inhalation R BIDPRN PRN sob 12/17/23
(0.083 %) solution for nebulization
budesonide 0.5 mg/2 mL suspension 0.5 mg inhalation R DAILY 12/17/23
for nebulization
cyanocobalamin (vitamin B-12) 1,000 mcg PO DAILY 12/17/23
1,000 mcg tablet
ferrous sulfate 325 mg (65 mg 325 mg PO DAILY 12/17/23
iron) tablet
prednisone 1 mg tablet 2 mg PO MOWEFR 12/17/23
Held on 11/05/24.
Instructions: Resume on
11/14/24.
quercetin 500 mg capsule 500 mg PO DAILY 12/17/23
vitamin K2 (MK-4) 100 mcg tablet 100 mcg PO DAILY 12/17/23
nospbro-zpxpbchzgfpys-btotrwvk 250 1 tab PO DAILY 11/01/24
mg-250 mg-65 mg tablet (Excedrin
Migraine)
atorvastatin 20 mg tablet 20 mg PO DAILY 11/01/24
buspirone 7.5 mg tablet 7.5 mg PO DAILYPRN PRN anxiety 11/01/24
donepezil 10 mg tablet 10 mg PO HS 11/01/24
fluticasone furoate 200 1 inh inhalation R DAILY 11/01/24
mcg-vilanterol 25 mcg/dose
inhalation powder (Breo Ellipta)
therapeutic multivitamin 1 tab PO DAILY 11/01/24
zinc sulfate 50 mg zinc (220 mg) 50 mg PO DAILY 11/01/24
tablet
bimatoprost 0.01 % eye drops 1 drp LEFT EYE HS 11/04/24
(Lumigan)
guaifenesin 600 mg tablet, 1,200 mg (2 x 600 mg) PO Q12 #30 11/05/24
extended release 12 hr tabs
prednisone 10 mg tablet 10 mg PO DIRECTED #13 tabs 11/05/24
Vital Signs / Lab Results
Temp Pulse Resp BP Pulse Ox
97.8 F 71 14 117/104 95
10/04/25 07:39 10/04/25 07:52 10/04/25 07:52 10/04/25 09:30 10/04/25 07:52
--- NOTE | 2025-10-04 12:56 | W.PN.UPDATE ---
Update Note
Progress Note Update
Patient seen and examined at bedside. Admitted past midnight. Nonbillable note. Discussed with orthopedics that this radial fracture will need to be repaired. Plan for OR Sunday. No labs or EKG was ordered at admission. Discussed with RN and
ordered EKG, troponin and labs. Patient denies chest pain at this time. Will need to be risk stratified once these are back. 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 On maintenance prednisone along with erythromycin and inhalers. Currently
on room air. If need arise then will consult pulmonary prior to the OR as well. Med rec pending, RN aware. Discussed with daughter
General: Well Developed, Well Nourished and No Apparent Distress
HEENT: NormoCephalic, Moist mucous membranes and Atraumatic
Respiratory: Clear and Rhonchi
Cardiac: S1/S2 and Regular Rhythm; No Murmur or Rub
GI: Soft, Non Tender, Non Distended and Normal Bowel Sounds
Musculoskeletal: No Edema and Other (Left wrist in splint)
Neuro: AO x 3 and Nonfocal/grossly intact
Psych: Calm
[2025-10-04 14:03] LABS: Hematocrit 41.6 % (37.0-47.0); Hemoglobin 13.4 g/dL (12.0-16.0); Mean Corp Hgb Conc. 32.2 g/dL (33.0-37.0); Mean Corpuscular Volume 98.1 fL (81.0-99.0); Nucleated Red Blood Cells % 0 %; Platelet Count 272 10^3/uL (130-400); Red Cell Dist. Width 13.4 % (11.5-14.5)
[2025-10-04 14:15] LABS: Blood Urea Nitrogen 16 mg/dl (7-17); Calcium 10.9 mg/dl (8.4-10.2); Carbon Dioxide 28 mmol/L (22-30); Chloride 101 mmol/L (98-107); Estimated Creatinine Clearance 56 ml/min; Glucose 115 mg/dl (70-99); Potassium 4.4 mmol/L (3.5-5.1); Sodium 134 mmol/L (135-145); eGFR > 60.00
[2025-10-04] MEDS: ERYTAB PO (15:03)
[2025-10-04] MEDS: COMPAZINE 5 MG IV (15:03)
--- NOTE | 2025-10-04 17:30 | PTCARENOTE ---
Patient admitted in to room 417-1. AAOx1-2. Daughter at bedside. IVF initiated. Patient medicated for pain. L arm elevated on pillow. Patient is confused and restless, bed alarm in place for patient safety.
[2025-10-04] MEDS: NSS 1000 IV (17:37)
[2025-10-04] MEDS: ROXICODONE 5 MG PO (18:39)
[2025-10-04] MEDS: ARICEPT 10 MG PO (19:54)
[2025-10-04] MEDS: SENOKOT 17.2 MG PO (19:54)
[2025-10-04] MEDS: COLACE 100 MG PO (19:54)
[2025-10-04] MEDS: XALATAN OPHTHALMIC SOLUTION LEFT EYE (22:35)
[2025-10-05] MEDS: DILAUDID 0.5 MG IV ×2 (00:38→19:37)
[2025-10-05] MEDS: TYLENOL 650 MG PO (02:34)
--- NOTE | 2025-10-05 06:12 | W.PN.UPDATE ---
Update Note
Progress Note Update
Patient resting comfortably. Splint in place LUE. as long as she remains medically optimized and cleared, plan for LEFT distal radius ORIF will be tomorrow, [address] Foster. OR aware. She will be NPO pMN. Surgical and blood
consents have been signed in the ED and are in our possession for Sunday. No lifting or WB at this time LUE. Orthopaedics will follow.
[2025-10-05 07:10] VITALS: BP 162/73
--- NOTE | 2025-10-05 07:35 | W.PN.HOSP.TC ---
Today's Communication/Plan
-
see a/p
Assessment / Plan
Assessment / Plan
Physical Exam
General: No acute distress, appears comfortable at this time
HEENT: NormoCephalic, Moist mucous membranes and Atraumatic
Respiratory: Clear and Rhonchi
Cardiac: S1/S2 and Regular Rhythm; No Murmur or Rub
GI: Soft, Non Tender, Non Distended and Normal Bowel Sounds; No Organomegaly
Musculoskeletal: No Clubbing, No Cyanosis, No Edema, Left wrist in splint
Skin: No Rash
Neuro: AO x 2 disoriented to time
Psych: Calm
84-year-old with history of COPD asthma, hyperlipidemia osteoporosis who presents to the emergency department following a witnessed mechanical fall at home. She suffered and a fracture of the left wrist is nondisplaced and has minimal deformity.
She was placed in a splint but is unable to manage it by herself with the splint.
PLAN:
Mechanical fall with nondisplaced/minimally displaced left wrist fracture
� MedSurg
� Pain control
� Maintain splint
� Orthopedic consult appreciated NPO after midnight for ORIF
- Cardiac risk stratification appreciated, acceptable risk for surgical intervention, risk not prohibitive
� No thinners
- PT/OT appreciated SNF rehab
COPD/asthma�patient currently stable without any acute symptoms
� Continue albuterol nebs
� Continue her breo, incruse and budesonide
- continue maintenance prednisone 2mg daily
- continue maintenance erythromycin 250mg daily
Dementia
- continue memantine and donepizil
- continue buspirone
Mild Hypercalcemia
-monitor
-cont IVF gentle hydration
DVT PPX - SCDs
Code status - Full code
I spent a total of 45 minutes with the patient or on the floor. More than 50% of this time involved counseling and coordination of care.
Anticipated Discharge: 24 - 48 hours
Subjective/Interval History
-
Date of Service: October 05, 2025
no acute distress, resting comfortably in bed. AOx2, disoriented to time. Reports pain well controlled at this time.
Objective Data
-
Labs:
Laboratory Results
10/05/25
06:00
WBC Pending
Hgb Pending
Hct Pending
Plt Count Pending
Sodium Pending
Potassium Pending
Chloride Pending
Carbon Dioxide Pending
BUN Pending
Creatinine Pending
Glucose Pending
Calcium Pending
Vital Signs:
Vital Signs
Temp Pulse Resp BP Pulse Ox
98.3 F 84 18 128/87 93
10/04/25 23:34 10/04/25 23:34 10/04/25 23:34 10/04/25 23:34 10/04/25 23:34
I&O
10/04/25 10/05/25 10/06/25
06:59 06:59 06:59
Intake Total 120 / 120
Balance 120 / 120
[2025-10-05] MEDS: SYMBICORT 160/4.5 MCG INHALER 2 PUFF INH ×2 (08:02→19:28)
[2025-10-05] MEDS: PULMICORT 0.5 MG INH (08:02)
[2025-10-05] MEDS: SPIRIVA RESPIMAT 2.5 MCG 2 PUFF INH (08:02)
[2025-10-05] MEDS: SENOKOT 17.2 MG PO ×2 (09:00→19:36)
[2025-10-05] MEDS: LIPITOR 20 MG PO (09:00)
[2025-10-05] MEDS: ROXICODONE 5 MG PO ×2 (09:00→15:53)
[2025-10-05] MEDS: PROTONIX 40 MG PO (09:01)
[2025-10-05] MEDS: NAMENDA 10 MG PO ×2 (09:01→19:37)
[2025-10-05] MEDS: COLACE 100 MG PO ×2 (09:01→19:37)
[2025-10-05] MEDS: THERAGRAN 1 TABLET PO (09:01)
[2025-10-05] MEDS: DELTASONE 2 MG PO (09:02)
[2025-10-05 09:45] LABS: Hematocrit 43.4 % (37.0-47.0); Hemoglobin 13.6 g/dL (12.0-16.0); Mean Corp Hgb Conc. 31.3 g/dL (33.0-37.0); Mean Corpuscular Volume 99.8 fL (81.0-99.0); Nucleated Red Blood Cells % 0 %; Platelet Count 274 10^3/uL (130-400); Red Cell Dist. Width 13.5 % (11.5-14.5)
--- NOTE | 2025-10-05 09:47 | CON.CAR ---
Addendum entered and electronically signed by Nehemias Pack MD 10/05/25 12:00:
I reviewed and agree with the note by YOLI and it accurately reflects our care.
I saw and evaluated the patient, and I provided the substantive portion of the medical decision making. My assessment and plan is below:
84-year-old female with asthma/COPD, former smoking, hyperlipidemia, and dementia who presented with a mechanical fall. Cardiology is consulted for preoperative risk stratification prior to ORIF of her left wrist tomorrow. Patient denies any chest
pain, shortness of breath, palpitations, lower extremity edema, presyncope, or syncope.
Physical exam: RRR, no murmurs, bibasilar crackles, no lower extremity edema
ECG: Normal sinus rhythm, nonspecific ST�T wave abnormality (unchanged from prior)
Preoperative risk stratification: She is at acceptable risk for surgery from a cardiovascular standpoint. See NSQIP risk stratification below. She is not on any cardiac meds that require perioperative hold.
Cardiology will sign off at this time. Please call with any additional questions or concerns.
Original Note:
Consultation
Consultation Request
Date/Time Consultation Requested: 10/05/2025 08:50
Date/Time Consultation Performed: 10/05/2025 09:45
Requesting Provider: Dr. Worthington
Performing Provider: YOLI Bolton for Dr. Pack
Reason for Consultation: Cardiac risk assessment
Medical History
-
Chief Complaint: Fall
History of Present Illness:
Zaira Cid is an 84-year-old female (known to Dr. Pappas, her primary roll carrier), with asthma, former smoking, COPD, hypercholesterolemia, dementia, and osteoporosis who presented after a witnessed mechanical fall. The plan is for ORIF of
her left wrist tomorrow. Cardiology was consulted for risk assessment. She denies chest pain, shortness of breath, and dizziness.
Past Medical History
Past Medical History: Asthma, COPD, Hypercholesterolemia and Other (Dementia)
Past Surgical History: Cholecystectomy
Social History
Tobacco: Former Smoker
Employment: Retired
Family History
Family History: Reviewed & Not Pertinent
Allergies / Home Medications
Allergy/AdvReac Type Severity Reaction Status Date / Time
No Known Allergies Allergy Verified 10/04/25 16:59
�Medication �Instructions �Recorded �Confirmed �Type
albuterol sulfate 90 mcg/actuation 2 puff inhalation R Q4HPRN PRN 05/05/17 10/04/25 History
aerosol inhaler (Ventolin HFA) wheezing
ascorbic acid (vitamin C) 500 mg 500 mg PO DAILY Supplement 09/09/22 10/04/25 History
tablet (Vitamin C)
azithromycin 250 mg tablet 250 mg PO DAILY usp 09/09/22 10/04/25 History
cholecalciferol (vitamin D3) 25 25 mcg PO DAILY Supplement 09/09/22 10/04/25 History
mcg (1,000 unit) tablet (Vitamin
D3)
umeclidinium 62.5 mcg/actuation 1 inh inhalation BID 09/09/22 10/04/25 History
blister powder for inhalation Lung/breathing issues
(Incruse Ellipta)
albuterol sulfate 2.5 mg/3 mL 2.5 mg inhalation R BIDPRN PRN sob 12/17/23 10/04/25 History
(0.083 %) solution for nebulization
budesonide 0.5 mg/2 mL suspension 0.5 mg inhalation R DAILY 12/17/23 10/04/25 History
for nebulization Lung/Breathing Issues
cyanocobalamin (vitamin B-12) 1,000 mcg PO DAILY Supplement 12/17/23 10/04/25 History
1,000 mcg tablet
ferrous sulfate 325 mg (65 mg 325 mg PO DAILY Supplement 12/17/23 10/04/25 History
iron) tablet
prednisone 1 mg tablet 2 mg PO DAILY INFLAMMATION 12/17/23 10/04/25 History
Held on 11/05/24.
Instructions: Resume on
11/14/24.
quercetin 500 mg capsule 500 mg PO DAILY Supplement 12/17/23 10/04/25 History
vitamin K2 (MK-4) 100 mcg tablet 100 mcg PO DAILY Supplement 12/17/23 10/04/25 History
trepssg-lbgxpwwqoulxi-juhkgwda 250 1 tab PO DAILY Pain 11/01/24 10/04/25 History
mg-250 mg-65 mg tablet (Excedrin
Migraine)
atorvastatin 20 mg tablet 20 mg PO DAILY High Cholesterol 11/01/24 10/04/25 History
buspirone 7.5 mg tablet 7.5 mg PO DAILYPRN PRN anxiety 11/01/24 10/04/25 History
donepezil 10 mg tablet 10 mg PO HS Mental Health/Anxiety 11/01/24 10/04/25 History
fluticasone furoate 200 1 inh inhalation BID 11/01/24 10/04/25 History
mcg-vilanterol 25 mcg/dose Lung/Breathing Issues
inhalation powder (Breo Ellipta)
therapeutic multivitamin 1 tab PO DAILY Supplement 11/01/24 10/04/25 History
zinc sulfate 50 mg zinc (220 mg) 50 mg PO DAILY Supplement 11/01/24 10/04/25 History
tablet
bimatoprost 0.01 % eye drops 1 drp LEFT EYE HS Eye Condition 11/04/24 10/04/25 History
(Lumigan)
guaifenesin 600 mg tablet, 1,200 mg PO Q12 PRN CONGESTION 10/04/25 10/04/25 History
extended release 12 hr
Review of Systems
-
History Source: Patient
All other systems: Negative unless noted
Constitutional: Fatigue
EENT: No Symptoms
Respiratory: No Symptoms
Cardiac: No Symptoms
Abdomen/GI: No Symptoms
: No Symptoms
Musculoskeletal: Joint Pain
Skin: No Symptoms
Neurological: No Symptoms
Endocrine: No Symptoms
Hematologic/Lymphatic: No Symptoms
Physical Exam
Vital Signs
Temp Pulse Resp BP Pulse Ox
98.2 F 76 16 162/73 98
10/05/25 07:10 10/05/25 08:06 10/05/25 08:06 10/05/25 07:10 10/05/25 08:06
Lab Results
10/05/25 09:26
Physical Exam
General: Well Developed, Well Nourished, No Apparent Distress and Comfortable
HEENT: Anicteric, Moist Mucous Membranes and Other (Bruise and laceration to upper lip)
Respiratory: Clear and Non Labored Respirations
Cardiac: S1/S2 and Regular Rhythm
Breast: Deferred by me
GI: Soft, Non Tender, Non Distended and Normal Bowel Sounds
Rectal: Deferred by Provider
Genito-urinary: No Costovertebral Tender
Musculoskeletal: No Clubbing and No Cyanosis
Skin: Warm and Dry
Neuro: Awake and Alert
Hematologic/Lymphatic: No Lymphadenopathy
Psych: Calm
Impression / Plan
-
I/P: 84F with asthma, former smoking, COPD, hypercholesterolemia, dementia, and osteoporosis who presented after a witnessed mechanical fall. Cardiology was consulted for risk assessment.
Primary roll carrier: Dr. Pappas
Cardiac risk assessment
- EKG nonischemic
- Chest pain-free
Mechanical fall with left distal radius fracture
- Plan for ORIF tomorrow, 10/06/2025 per Ortho
Asthma with COPD
- With severe diffusion capacity since 2013
- Follows with Dr. Butterfield in the outpatient setting
Hypercholesterolemia, on atorvastatin
Dementia, chronic, on donepezil
Former smoker, continue cessation recommended
Data Reviewed
-
EKG: Report Reviewed by me
Radiology: Report Reviewed by me
Medical Tests (Nuc Med, Echo etc): Report Reviewed by me
Labs: Labs Reviewed by me
Old Records: Reviewed
[2025-10-05] MEDS: ERYTAB 250 MG PO (09:53)
[2025-10-05 10:59] LABS: Blood Urea Nitrogen 12 mg/dl (7-17); Calcium 11.1 mg/dl (8.4-10.2); Carbon Dioxide 28 mmol/L (22-30); Chloride 105 mmol/L (98-107); Estimated Creatinine Clearance 56 ml/min; Glucose 98 mg/dl (70-99); Potassium 4.0 mmol/L (3.5-5.1); Sodium 137 mmol/L (135-145); eGFR > 60.00
--- NOTE | 2025-10-05 12:02 | CM ---
CM reviewed chart, consult received for advance directive.
Patient seen bedside, advance directive provided.
Patient likely for OR tomorrow.
Will follow for PT/OT post OR.
Plan; TBD pending OR, PT/OT post op recommendations.
[2025-10-05] MEDS: NSS 1000 IV (13:29)
[2025-10-05] MEDS: LIDOCAINE 4% PATCH 1 PATCH TOPICAL (13:32)
[2025-10-05 14:10] VITALS: BP 155/71; PULSE 73; O2SAT 96
[2025-10-05 15:15] VITALS: BP 126/57
[2025-10-05] MEDS: ARICEPT 10 MG PO (19:36)
[2025-10-05] MEDS: REMOVE LIDOCAINE PATCH 1 PATCH REMOVE (19:43)
[2025-10-05] MEDS: XALATAN OPHTHALMIC SOLUTION 1 DROP LEFT EYE (19:43)
[2025-10-05 23:05] VITALS: BP 164/73
[2025-10-05] MEDS: MELATONIN 5 MG PO (23:25)
[2025-10-05 23:40] VITALS: BP 179/76
[2025-10-06] VITALS (11 sets, daily range): BP systolic 135–193; BP diastolic 62–98
[2025-10-06] MEDS: ROXICODONE 5 MG PO ×2 (00:12→21:40)
[2025-10-06] MEDS: NSS 1000 IV (04:23)
[2025-10-06] MEDS: SPIRIVA RESPIMAT 2.5 MCG 2 PUFF INH (07:06)
[2025-10-06] MEDS: PULMICORT 0.5 MG INH (07:06)
[2025-10-06] MEDS: SYMBICORT 160/4.5 MCG INHALER 2 PUFF INH ×2 (07:07→19:40)
--- NOTE | 2025-10-06 07:37 | W.PN.HOSP.TC ---
Today's Communication/Plan
-
see a/p
Assessment / Plan
Assessment / Plan
Physical Exam
General: No acute distress, appears comfortable at this time
HEENT: NormoCephalic, Moist mucous membranes and Atraumatic
Respiratory: Clear and Rhonchi
Cardiac: S1/S2 and Regular Rhythm; No Murmur or Rub
GI: Soft, Non Tender, Non Distended and Normal Bowel Sounds; No Organomegaly
Musculoskeletal: No Clubbing, No Cyanosis, No Edema, Left wrist in splint
Skin: No Rash
Neuro: AO x 2 disoriented to time
Psych: Calm
84-year-old with history of COPD asthma, hyperlipidemia osteoporosis who presents to the emergency department following a witnessed mechanical fall at home. She suffered and a fracture of the left wrist is nondisplaced and has minimal deformity.
She was placed in a splint but is unable to manage it by herself with the splint.
PLAN:
Mechanical fall with nondisplaced/minimally displaced left wrist fracture
� MedSurg
� Pain control
� Maintain splint
� Orthopedic consult appreciated NPO for ORIF today
- Cardiac risk stratification appreciated, acceptable risk for surgical intervention, risk not prohibitive
� No thinners
- PT/OT appreciated SNF rehab
COPD/asthma�patient currently stable without any acute symptoms
� Continue albuterol nebs
� Continue home breo, incruse and budesonide
- continue maintenance prednisone 2mg daily
- continue maintenance erythromycin 250mg daily
Dementia
- continue memantine and donepizil
- continue buspirone
Mild Hypercalcemia
-monitor
-cont IVF gentle hydration while NPO
DVT PPX - SCDs
Code status - Full code
I spent a total of 45 minutes with the patient or on the floor. More than 50% of this time involved counseling and coordination of care.
Anticipated Discharge: 24 - 48 hours
Subjective/Interval History
-
Date of Service: October 06, 2025
Seen and examined at bedside in no acute distress resting comfortably in bed. Pain well controlled at this time.
Objective Data
-
Labs:
Laboratory Results
10/06/25
06:00
WBC Pending
Hgb Pending
Hct Pending
Plt Count Pending
Sodium Pending
Potassium Pending
Chloride Pending
Carbon Dioxide Pending
BUN Pending
Creatinine Pending
Glucose Pending
Calcium Pending
Vital Signs:
Vital Signs
Temp Pulse Resp BP Pulse Ox
97.8 F 76 18 142/70 97
10/05/25 23:40 10/06/25 07:11 10/06/25 07:11 10/06/25 00:45 10/06/25 07:11
I&O
10/05/25 10/06/25 10/07/25
06:59 06:59 06:59
Intake Total 120 / 120 1345 / 1345
Balance 120 / 120 1345 / 1345
[2025-10-06] MEDS: THERAGRAN 1 TABLET PO (07:41)
[2025-10-06] MEDS: LIPITOR 20 MG PO (07:41)
[2025-10-06] MEDS: PROTONIX 40 MG PO (07:41)
[2025-10-06] MEDS: COLACE 100 MG PO ×2 (07:41→20:17)
[2025-10-06] MEDS: TYLENOL 650 MG PO (07:42)
[2025-10-06] MEDS: SENOKOT 17.2 MG PO ×2 (07:42→20:18)
[2025-10-06] MEDS: ERYTAB 250 MG PO (07:42)
[2025-10-06] MEDS: DELTASONE 2 MG PO (07:42)
[2025-10-06] MEDS: LIDOCAINE 4% PATCH 1 PATCH TOPICAL (07:43)
[2025-10-06] MEDS: NAMENDA 10 MG PO ×2 (07:44→20:18)
[2025-10-06 08:44] LABS: Hematocrit 39.6 % (37.0-47.0); Hemoglobin 12.6 g/dL (12.0-16.0); Mean Corp Hgb Conc. 31.8 g/dL (33.0-37.0); Mean Corpuscular Volume 95.9 fL (81.0-99.0); Platelet Count 260 10^3/uL (130-400); Red Cell Dist. Width 13.4 % (11.5-14.5)
[2025-10-06 09:11] LABS: Blood Urea Nitrogen 11 mg/dl (7-17); Calcium 10.3 mg/dl (8.4-10.2); Carbon Dioxide 23 mmol/L (22-30); Chloride 106 mmol/L (98-107); Estimated Creatinine Clearance 56 ml/min; Glucose 81 mg/dl (70-99); Potassium 4.0 mmol/L (3.5-5.1); Sodium 135 mmol/L (135-145); eGFR > 60.00
[2025-10-06] MEDS: DILAUDID 0.5 MG IV ×2 (10:01→15:25)
--- NOTE | 2025-10-06 16:42 | CM ---
CM met with patient and her 2 daughters at bedside. Patient went to the OR for ORIF of left wrist. SNF is anticipated upon d/c. Patient's daughter requested referrals to [facility], [facility], and [facility] [place] [place] [facility]. Also agreed to referrals
to [facility].
[2025-10-06] MEDS: ANCEF 5 IV (20:17)
[2025-10-06] MEDS: REMOVE LIDOCAINE PATCH 1 PATCH REMOVE (20:18)
[2025-10-06] MEDS: ARICEPT 10 MG PO (20:18)
[2025-10-06] MEDS: XALATAN OPHTHALMIC SOLUTION 1 DROP LEFT EYE (20:19)
[2025-10-06] MEDS: MELATONIN 5 MG PO (21:39)
[2025-10-07] VITALS: BP 122/80
[2025-10-07] MEDS: TYLENOL 650 MG PO ×2 (00:13→21:02)
[2025-10-07 03:01] VITALS: BP 151/101
[2025-10-07] MEDS: ANCEF 5 IV (04:52)
--- NOTE | 2025-10-07 07:02 | W.PN.ORTHO ---
Today's Communication / Plan
-
Splint in place at all times
Strict nonweightbearing left upper extremity
Ice with elevation to control swelling and edema
DVT prophylaxis per medicine
Follow-up with orthopedics 2 weeks postop
Assessment
.
Distal Motor Intact: Yes
Dressing:
Clean, dry and intact.
Plan
.
Surgery / Date: ORIF L radius 10/06 [place]
Activity:
Out of bed.
PT/OT
Discharge Plan: SNF
Subjective
.
.:
Patient resting comfortably but slightly confused
Vital Signs and Labs
.
Vital Signs and Labs:
Temp Pulse Resp BP Pulse Ox
97.4 F 87 16 151/101 95
10/07/25 03:01 10/07/25 03:01 10/07/25 03:01 10/07/25 03:01 10/07/25 03:01
Physical Exam
-
Left upper extremity splint in place. Edema and ecchymosis noted. Her interscalene block seems to still be working because she is unable to wiggle her fingers and has diminished sensation throughout the hand. Hand is warm to touch with capillary
fill approximately 3 seconds.
--- NOTE | 2025-10-07 07:39 | W.PN.HOSP.TC ---
Today's Communication/Plan
-
see a/p
Assessment / Plan
Assessment / Plan
Physical Exam
General: No acute distress, appears comfortable at this time
HEENT: NormoCephalic, Moist mucous membranes and Atraumatic
Respiratory: Clear and Rhonchi
Cardiac: S1/S2 and Regular Rhythm; No Murmur or Rub
GI: Soft, Non Tender, Non Distended and Normal Bowel Sounds; No Organomegaly
Musculoskeletal: No Clubbing, No Cyanosis, No Edema, Left wrist in splint
Skin: No Rash
Neuro: AO x 2 disoriented to time
Psych: Calm
84-year-old with history of COPD asthma, hyperlipidemia osteoporosis who presents to the emergency department following a witnessed mechanical fall at home. She suffered and a fracture of the left wrist is nondisplaced and has minimal deformity.
She was placed in a splint but is unable to manage it by herself with the splint.
PLAN:
Mechanical fall with nondisplaced/minimally displaced left wrist fracture
� MedSurg
� Pain control
� Maintain splint
� Orthopedic consult s/p ORIF 10/06 strict NWB LUE, ice w/ elevation to control swelling edema, follow up in 2 wks
- PT/OT appreciated SNF rehab
COPD/asthma�patient currently stable without any acute symptoms
� Continue albuterol nebs
� Continue home breo, incruse and budesonide
- continue maintenance prednisone 2mg daily
- continue maintenance erythromycin 250mg daily
Dementia
- continue memantine and donepizil
- continue buspirone
Mild Hypercalcemia
-monitor
DVT PPX - SCDs
Code status - Full code
I spent a total of 45 minutes with the patient or on the floor. More than 50% of this time involved counseling and coordination of care.
Anticipated Discharge: 24 - 48 hours
Subjective/Interval History
-
Date of Service: October 07, 2025
No acute distress, appears comfortable at this time. LUE weakness persists, improving as day progresses, able to wriggle fingers.
Objective Data
-
Labs:
Laboratory Results
10/07/25
07:05
WBC Pending
Hgb Pending
Hct Pending
Plt Count Pending
Sodium Pending
Potassium Pending
Chloride Pending
Carbon Dioxide Pending
BUN Pending
Creatinine Pending
Glucose Pending
Calcium Pending
Vital Signs:
Vital Signs
Temp Pulse Resp BP Pulse Ox
97.4 F 87 16 151/101 95
10/07/25 03:01 10/07/25 03:01 10/07/25 03:01 10/07/25 03:01 10/07/25 03:01
I&O
10/06/25 10/07/25 10/08/25
06:59 06:59 06:59
Intake Total 1345 / 1345 650 / 650
Balance 1345 / 1345 650 / 650
[2025-10-07] MEDS: SPIRIVA RESPIMAT 2.5 MCG 2 PUFF INH (07:53)
[2025-10-07] MEDS: SYMBICORT 160/4.5 MCG INHALER 2 PUFF INH ×2 (07:53→19:43)
[2025-10-07] MEDS: PULMICORT INH (07:53)
[2025-10-07 07:59] LABS: Hematocrit 35.4 % (37.0-47.0); Hemoglobin 11.7 g/dL (12.0-16.0); Mean Corp Hgb Conc. 33.1 g/dL (33.0-37.0); Mean Corpuscular Volume 95.9 fL (81.0-99.0); Platelet Count 271 10^3/uL (130-400); Red Cell Dist. Width 13.1 % (11.5-14.5)
[2025-10-07 08:01] LABS: Blood Urea Nitrogen 17 mg/dl (7-17); Calcium 10.7 mg/dl (8.4-10.2); Carbon Dioxide 25 mmol/L (22-30); Chloride 107 mmol/L (98-107); Estimated Creatinine Clearance 56 ml/min; Glucose 97 mg/dl (70-99); Magnesium 2.0 mg/dl (1.6-2.3); Potassium 4.4 mmol/L (3.5-5.1); Sodium 135 mmol/L (135-145); eGFR > 60.00
[2025-10-07] MEDS: DELTASONE 2 MG PO (08:01)
[2025-10-07] MEDS: SENOKOT 17.2 MG PO ×2 (08:02→19:28)
[2025-10-07] MEDS: ERYTAB 250 MG PO (08:02)
[2025-10-07] MEDS: NAMENDA 10 MG PO ×2 (08:02→19:28)
[2025-10-07] MEDS: THERAGRAN 1 TABLET PO (08:03)
[2025-10-07] MEDS: PROTONIX 40 MG PO (08:03)
[2025-10-07] MEDS: COLACE 100 MG PO ×2 (08:04→19:28)
[2025-10-07] MEDS: LIDOCAINE 4% PATCH 1 PATCH TOPICAL (08:04)
[2025-10-07] MEDS: LIPITOR 20 MG PO (08:05)
[2025-10-07 08:10] VITALS: BP 146/67
[2025-10-07 09:20] VITALS: BP 127/74; PULSE 71; O2SAT 96
--- NOTE | 2025-10-07 10:56 | PN.CDI ---
CDI
- -
CDI:
Physician Documentation Request
Admit Date: 10/04/25 01:17
Dear Doctor,
Patient admitted for wrist fracture.
ER Physician Documentation: 'She fell forward striking her face on the floor and landing on her left wrist. She notes left wrist deformity and pain.'
Operative Report: 'There was significant osteoporotic bone identified at the time of surgery and sliding of the most ulnar and distal screw.'
Please provide further specificity regarding the diagnosis of fracture:
Due to a combination of trauma and osteoporosis but the trauma alone would not likely have been sufficient to cause the fracture
Traumatic fracture
Other
Use of terms such as suspected, likely, concern for, or probable (associated with a specific diagnosis that is being evaluated, monitored, or treated as if it exists) are acceptable and can be coded in the inpatient setting, when documented at the
time of discharge.
Thank you,
Margo Swanson RN, BSN
CDI Specialist
Available via [place] text
Please use your independent medical judgment in providing your response.
--- NOTE | 2025-10-07 14:48 | CM ---
NOHEMI is working on SNF placement. [facility] patient. patient and daughter prefer [facility]. Will need to obtain insurance auth.
[facility]- NPI#[id number]
Dr. Jose A Peterson NPI- [id number]
Plan: [facility] when stable
[2025-10-07] MEDS: DILAUDID 0.5 MG IV ×2 (14:53→19:28)
[2025-10-07 15:56] VITALS: BP 142/65
[2025-10-07] MEDS: BenGay-Like 1 APPLIC TOPICAL ×2 (18:05→21:04)
[2025-10-07] MEDS: MELATONIN 5 MG PO (21:03)
[2025-10-07] MEDS: ARICEPT 10 MG PO (21:03)
[2025-10-07] MEDS: XALATAN OPHTHALMIC SOLUTION 1 DROP LEFT EYE (21:04)
[2025-10-08] MEDS: DILAUDID 0.5 MG IV ×3 (00:04→23:44)
[2025-10-08 00:10] VITALS: BP 140/70
[2025-10-08] MEDS: TYLENOL 650 MG PO ×5 (02:46→23:44)
[2025-10-08] MEDS: ROXICODONE 5 MG PO ×2 (05:07→10:07)
[2025-10-08 07:12] LABS: Hematocrit 37.6 % (37.0-47.0); Hemoglobin 12.3 g/dL (12.0-16.0); Mean Corp Hgb Conc. 32.7 g/dL (33.0-37.0); Mean Corpuscular Volume 94.2 fL (81.0-99.0); Platelet Count 319 10^3/uL (130-400); Red Cell Dist. Width 13.2 % (11.5-14.5)
[2025-10-08 07:20] VITALS: BP 156/77
--- NOTE | 2025-10-08 07:36 | W.PN.HOSP.TC ---
Today's Communication/Plan
-
cont pain control
PT/OT
IVF NS hydration 100 cc/h hypercalcemia (likely cause of polyuria)
check urinalysis though suspicion UTI low
Assessment / Plan
Assessment / Plan
Physical Exam
General: No acute distress, appears comfortable at this time
HEENT: NormoCephalic, Moist mucous membranes and Atraumatic
Respiratory: Clear and Rhonchi
Cardiac: S1/S2 and Regular Rhythm; No Murmur or Rub
GI: Soft, Non Tender, Non Distended and Normal Bowel Sounds; No Organomegaly
Musculoskeletal: No Clubbing, No Cyanosis, No Edema, Left wrist in splint
Skin: No Rash
Neuro: AO x 2 disoriented to time
Psych: Calm
84-year-old with history of COPD asthma, hyperlipidemia osteoporosis who presents to the emergency department following a witnessed mechanical fall at home. She suffered and a fracture of the left wrist is nondisplaced and has minimal deformity.
She was placed in a splint but is unable to manage it by herself with the splint.
PLAN:
Mechanical fall with nondisplaced/minimally displaced left wrist fracture
� MedSurg
� Pain control
� Maintain splint
� Orthopedic consult s/p ORIF 10/06 strict NWB LUE, ice w/ elevation to control swelling edema, follow up in 2 wks suture removal X-ray
- PT/OT appreciated SNF rehab
COPD/asthma�patient currently stable without any acute symptoms
� Continue albuterol nebs
� Continue home breo, incruse and budesonide
- continue maintenance prednisone 2mg daily
- continue maintenance erythromycin 250mg daily
Dementia
- continue memantine and donepizil
- continue buspirone
Hypercalcemia
suspect Hyperparathyroidism
PTH elevated
normal Vit D level
-urinary urgency/frequency likely polyuria 2/2 hypercalcemia
-checking urinalysis though suspicion UTI low
-start IVF NS hydration 100 cc/h
DVT PPX - SCDs
Code status - Full code
I spent a total of 45 minutes with the patient or on the floor. More than 50% of this time involved counseling and coordination of care.
Anticipated Discharge: 24 - 48 hours
Subjective/Interval History
-
Date of Service: October 08, 2025
No acute distress, pain relatively well controlled at this time with current pain regimen. Reports urinary urgency/frequency. Denies dysuria.
Objective Data
-
Labs:
Laboratory Results
10/08/25 10/08/25 10/08/25
06:49 06:49 06:50
WBC 11.2 H
Hgb 12.3
Hct 37.6
Plt Count 319
Sodium Pending
Potassium Pending
Chloride Pending
Carbon Dioxide Pending
BUN Pending
Creatinine Pending
Glucose Pending
Calcium Pending Pending
Vital Signs:
Vital Signs
Temp Pulse Resp BP Pulse Ox
97.3 F 70 24 140/70 96
10/08/25 03:07 10/08/25 03:07 10/08/25 03:07 10/08/25 00:10 10/08/25 03:07
I&O
10/07/25 10/08/25 10/09/25
06:59 06:59 06:59
Intake Total 650 / 650 720 / 1200 480 / 480
Balance 650 / 650 720 / 1200 480 / 480
[2025-10-08 07:45] LABS: Blood Urea Nitrogen 22 mg/dl (7-17); Calcium 11.0 mg/dl (8.4-10.2); Carbon Dioxide 24 mmol/L (22-30); Chloride 103 mmol/L (98-107); Estimated Creatinine Clearance 56 ml/min; Glucose 110 mg/dl (70-99); Magnesium 2.0 mg/dl (1.6-2.3); Potassium 4.1 mmol/L (3.5-5.1); Sodium 133 mmol/L (135-145); eGFR > 60.00
[2025-10-08 07:46] LABS: Calcium 11.0 mg/dl (8.4-10.2)
[2025-10-08] MEDS: SYMBICORT 160/4.5 MCG INHALER 2 PUFF INH (08:20)
[2025-10-08] MEDS: PULMICORT 0.5 MG INH (08:20)
[2025-10-08] MEDS: SPIRIVA RESPIMAT 2.5 MCG 2 PUFF INH (08:20)
[2025-10-08 09:15] VITALS: BP 156/77; PULSE 60; O2SAT 97
[2025-10-08] MEDS: LIPITOR 20 MG PO (09:54)
[2025-10-08] MEDS: PROTONIX 40 MG PO (09:55)
[2025-10-08] MEDS: DELTASONE 2 MG PO (10:01)
[2025-10-08] MEDS: ERYTAB 250 MG PO (10:03)
[2025-10-08] MEDS: SENOKOT 17.2 MG PO ×2 (10:03→20:49)
[2025-10-08] MEDS: COLACE 100 MG PO ×2 (10:04→20:49)
[2025-10-08] MEDS: NAMENDA 10 MG PO ×2 (10:04→20:53)
[2025-10-08] MEDS: THERAGRAN 1 TABLET PO (10:07)
[2025-10-08] MEDS: BenGay-Like 1 APPLIC TOPICAL ×3 (10:09→20:53)
[2025-10-08 13:01] VITALS: BP 137/71; PULSE 69; O2SAT 97
--- NOTE | 2025-10-08 13:36 | W.PN.ORTHO ---
Today's Communication / Plan
-
Continue Tx per primary
Dispo per CM, which is appreciated
Splint to remain LUE
OOB ad ivan. Strict NWB, no lifting LUE
Ice and pain control
DVT ppx per primary
Outpatient Ortho follow-up in 2 weeks for suture removal/xrays
Ortho to sign off for now. Please reengage as necessary
Assessment
.
Dressing:
Clean, dry and intact.
Plan
.
Surgery / Date: ORIF left distal radius Oct 08 ([place])
DVT Prophylaxis: Other (per primary, if appropriate)
Activity:
Out of bed. NWB, no lifting LUE
PT/OT
Discharge Plan: Other (per CM)
Subjective
.
.:
Patient seated comfortably bedside
Vital Signs and Labs
.
Vital Signs and Labs:
Lab Results
10/08/25 06:50
10/08/25 06:49
Temp Pulse Resp BP Pulse Ox
97.6 F 74 16 156/77 96
10/08/25 07:20 10/08/25 08:28 10/08/25 08:28 10/08/25 07:20 10/08/25 08:28
[2025-10-08 15:10] VITALS: BP 160/75
[2025-10-08 15:34] LABS: Vitamin D, 25-OH*** 40.6 ng/mL (30-80)
[2025-10-08] MEDS: BenGay-Like TOPICAL (19:31)
[2025-10-08 19:43] LABS: Urine Character Clear (Clear)
[2025-10-08] MEDS: NSS 1000 IV (19:49)
[2025-10-08] MEDS: SYMBICORT 160/4.5 MCG INHALER INH (20:29)
[2025-10-08] MEDS: MELATONIN 5 MG PO (20:49)
[2025-10-08] MEDS: XALATAN OPHTHALMIC SOLUTION 1 DROP LEFT EYE (20:53)
[2025-10-08] MEDS: ARICEPT 10 MG PO (20:53)
[2025-10-08 23:52] VITALS: BP 150/68
[2025-10-09] MEDS: NSS 1000 IV (04:42)
[2025-10-09] MEDS: DILAUDID 0.5 MG IV (04:45)
[2025-10-09] MEDS: TYLENOL 650 MG PO ×5 (04:45→20:37)
--- NOTE | 2025-10-09 07:25 | W.PN.HOSP.TC ---
Today's Communication/Plan
-
Monitor
likely Discharge tomorrow SNF rehab if remains stable/cont to improve
Assessment / Plan
Assessment / Plan
Physical Exam
General: No acute distress, appears comfortable at this time
HEENT: NormoCephalic, Moist mucous membranes and Atraumatic
Respiratory: Clear and Rhonchi
Cardiac: S1/S2 and Regular Rhythm; No Murmur or Rub
GI: Soft, Non Tender, Non Distended and Normal Bowel Sounds; No Organomegaly
Musculoskeletal: No Clubbing, No Cyanosis, No Edema, Left wrist in splint
Skin: No Rash
Neuro: AO x 2 disoriented to time
Psych: Calm
84-year-old with history of COPD asthma, hyperlipidemia osteoporosis who presents to the emergency department following a witnessed mechanical fall at home. She suffered and a fracture of the left wrist is nondisplaced and has minimal deformity.
She was placed in a splint but is unable to manage it by herself with the splint.
PLAN:
Mechanical fall with nondisplaced/minimally displaced left wrist fracture
� MedSurg
� Pain control
� Maintain splint
� Orthopedic consult s/p ORIF 10/06 strict NWB LUE, ice w/ elevation to control swelling edema, follow up in 2 wks suture removal X-ray
- PT/OT appreciated SNF rehab
COPD/asthma�patient currently stable without any acute symptoms
� Continue albuterol nebs
� Continue home breo, incruse and budesonide
- continue maintenance prednisone 2mg daily
- continue maintenance erythromycin 250mg daily
Dementia
- continue memantine and donepizil
- continue buspirone
Hypercalcemia
suspect Hyperparathyroidism
PTH elevated
normal Vit D level
-urinalysis neg for UTI
-Ca level trended down to wnl, polyuria also resolved, IVF completed
-low dose Lasix 20 mg daily started.
-outpt follow up recommended.
DVT PPX - SCDs
Code status - Full code
I spent a total of 45 minutes with the patient or on the floor. More than 50% of this time involved counseling and coordination of care.
Anticipated Discharge: Within 24 hours
Subjective/Interval History
-
Date of Service: October 09, 2025
No acute distress, appears comfortable sitting up in chair. Daughter Carie present during evaluation.
Objective Data
-
Labs:
Laboratory Results
10/09/25
06:00
WBC Pending
Hgb Pending
Hct Pending
Plt Count Pending
Sodium Pending
Potassium Pending
Chloride Pending
Carbon Dioxide Pending
BUN Pending
Creatinine Pending
Glucose Pending
Calcium Pending
Vital Signs:
Vital Signs
Temp Pulse Resp BP Pulse Ox
97.8 F 76 22 150/68 97
10/08/25 23:52 10/08/25 23:52 10/08/25 23:52 10/08/25 23:52 10/08/25 23:52
I&O
10/08/25 10/09/25 10/10/25
06:59 06:59 06:59
Intake Total 720 / 1200 960 / 960
Balance 720 / 1200 960 / 960
[2025-10-09 07:35] VITALS: BP 151/77
[2025-10-09] MEDS: SPIRIVA RESPIMAT 2.5 MCG 2 PUFF INH (08:33)
[2025-10-09] MEDS: SYMBICORT 160/4.5 MCG INHALER 2 PUFF INH ×2 (08:33→20:05)
[2025-10-09] MEDS: PULMICORT INH (08:38)
--- NOTE | 2025-10-09 08:38 | CM ---
NOHEMI submitted request for SNF to [facility] on 10/07/25. Authorization is still pending.
Reference#[id number]
SNF pending authorization
[2025-10-09] MEDS: BenGay-Like 1 APPLIC TOPICAL ×4 (08:49→22:21)
[2025-10-09] MEDS: ERYTAB 250 MG PO (08:50)
[2025-10-09] MEDS: DELTASONE 2 MG PO (08:50)
[2025-10-09] MEDS: NAMENDA 10 MG PO ×2 (08:50→19:29)
[2025-10-09] MEDS: THERAGRAN 1 TABLET PO (08:51)
[2025-10-09] MEDS: PROTONIX 40 MG PO (08:51)
[2025-10-09] MEDS: SENOKOT 17.2 MG PO ×2 (08:52→19:29)
[2025-10-09] MEDS: COLACE 100 MG PO ×2 (08:53→19:28)
[2025-10-09] MEDS: LIPITOR 20 MG PO (08:54)
[2025-10-09 09:21] LABS: Hematocrit 37.7 % (37.0-47.0); Hemoglobin 12.2 g/dL (12.0-16.0); Mean Corp Hgb Conc. 32.4 g/dL (33.0-37.0); Mean Corpuscular Volume 95.0 fL (81.0-99.0); Platelet Count 276 10^3/uL (130-400); Red Cell Dist. Width 13.2 % (11.5-14.5)
[2025-10-09 09:36] LABS: Blood Urea Nitrogen 16 mg/dl (7-17); Calcium 10.1 mg/dl (8.4-10.2); Carbon Dioxide 26 mmol/L (22-30); Chloride 107 mmol/L (98-107); Estimated Creatinine Clearance 56 ml/min; Glucose 72 mg/dl (70-99); Magnesium 2.0 mg/dl (1.6-2.3); Potassium 3.9 mmol/L (3.5-5.1); Sodium 135 mmol/L (135-145); eGFR > 60.00
[2025-10-09] MEDS: ROXICODONE 5 MG PO ×3 (11:55→23:31)
[2025-10-09 14:39] VITALS: BP 156/66
--- NOTE | 2025-10-09 14:45 | CM ---
[employer] approval for skilled rehab
Approved 10/09/25 with [employer] 10/15/25
Auth# [id number]
updates to fax# [phone]
[2025-10-09] MEDS: LASIX 20 MG PO (14:58)
--- NOTE | 2025-10-09 15:25 | CM ---
Patient is for transfer to [facility] on 10/10/25. She Has a 1pm ambulance cigar packer and picker scheduled. Discussed transfer arrangements with patient and her daughter. IMM give.
Ana Laura Authorization:
Approved 10/09/25 with [employer] 10/15/25
Auth# [id number]
[facility]
Phone # for report - [phone]

Plan: transfer to [facility] on 10/10/25, 1pm ambulance pu
[2025-10-09 16:26] VITALS: PULSE 72; O2SAT 96
[2025-10-09] MEDS: ARICEPT 10 MG PO (22:20)
[2025-10-09] MEDS: MELATONIN 5 MG PO (22:20)
[2025-10-09] MEDS: XALATAN OPHTHALMIC SOLUTION 1 DROP LEFT EYE (22:21)
[2025-10-09 23:52] VITALS: BP 159/86
[2025-10-10] MEDS: TYLENOL PO ×2 (00:51→17:57)
[2025-10-10] MEDS: ROXICODONE 5 MG PO ×2 (05:16→09:34)
[2025-10-10] MEDS: TYLENOL 650 MG PO ×5 (05:16→23:47)
--- NOTE | 2025-10-10 07:11 | W.PN.HOSP.TC ---
Today's Communication/Plan
-
Hold discharge d/t severe pain, pain regimen since adjusted
bowel regimen constipation
possible discharge SNF rehab tomorrow if improves
Assessment / Plan
Assessment / Plan
Physical Exam
General: moderate distress d/t pain discomfort
HEENT: NormoCephalic, Moist mucous membranes and Atraumatic
Respiratory: Clear and Rhonchi
Cardiac: S1/S2 and Regular Rhythm; No Murmur or Rub
GI: Soft, Non Tender, Non Distended and Normal Bowel Sounds; No Organomegaly
Musculoskeletal: No Clubbing, No Cyanosis, No Edema, Left wrist in splint
Skin: No Rash
Neuro: AO x 2 disoriented to time
Psych: Calm
84-year-old with history of COPD asthma, hyperlipidemia osteoporosis who presents to the emergency department following a witnessed mechanical fall at home. She suffered and a fracture of the left wrist is nondisplaced and has minimal deformity.
She was placed in a splint but is unable to manage it by herself with the splint.
PLAN:
Mechanical fall with nondisplaced/minimally displaced left wrist fracture
� MedSurg
� Pain control, discharge held d/t severe pain require IV pain meds, pain regimen since adjusted
� Maintain splint
� Orthopedic consult s/p ORIF 10/06 strict NWB LUE, ice w/ elevation to control swelling edema, follow up in 2 wks suture removal X-ray
- PT/OT appreciated SNF rehab
COPD/asthma�patient currently stable without any acute symptoms
� Continue albuterol nebs
� Continue home breo, incruse and budesonide
- continue maintenance prednisone 2mg daily
- continue maintenance erythromycin 250mg daily
Dementia
- continue memantine and donepizil
- continue buspirone
Hypercalcemia
suspect Hyperparathyroidism
PTH elevated
normal Vit D level
-urinalysis neg for UTI
-Ca level trended down to wnl, polyuria also resolved, IVF completed
-low dose Lasix 20 mg daily started.
-outpt follow up recommended.
Constipation
-cont bowel regimen
-supppository prn
DVT PPX - SCDs
Code status - Full code
Discussed with patient and patient's daughter Carie
I spent a total of 45 minutes with the patient or on the floor. More than 50% of this time involved counseling and coordination of care.
Anticipated Discharge: Within 24 hours
Subjective/Interval History
-
Date of Service: October 10, 2025
reports severe pain and constipation.
Objective Data
-
Labs:
Laboratory Results
10/10/25
06:00
Sodium Cancelled
Potassium Cancelled
Chloride Cancelled
Carbon Dioxide Cancelled
BUN Cancelled
Creatinine Cancelled
Glucose Cancelled
Calcium Cancelled
Vital Signs:
Vital Signs
Temp Pulse Resp BP Pulse Ox
97.3 F 77 16 159/86 97
10/09/25 23:52 10/09/25 23:52 10/09/25 23:52 10/09/25 23:52 10/09/25 23:52
I&O
10/09/25 10/10/25 10/11/25
06:59 06:59 06:59
Intake Total 960 / 960
Balance 960 / 960
[2025-10-10 07:35] VITALS: BP 158/89
[2025-10-10] MEDS: PULMICORT 0.5 MG INH (07:53)
[2025-10-10] MEDS: SPIRIVA RESPIMAT 2.5 MCG 2 PUFF INH (07:53)
[2025-10-10] MEDS: SYMBICORT 160/4.5 MCG INHALER 2 PUFF INH ×2 (07:54→19:24)
[2025-10-10] MEDS: VENTOLIN NEBULES 2.5 MG INH (07:54)
[2025-10-10] MEDS: SENOKOT 17.2 MG PO ×2 (09:37→19:39)
[2025-10-10] MEDS: PROTONIX 40 MG PO (09:38)
[2025-10-10] MEDS: LASIX 20 MG PO (09:39)
[2025-10-10] MEDS: COLACE 100 MG PO ×2 (09:39→19:39)
[2025-10-10] MEDS: THERAGRAN 1 TABLET PO (09:39)
[2025-10-10] MEDS: LIPITOR 20 MG PO (09:39)
[2025-10-10] MEDS: BenGay-Like 1 APPLIC TOPICAL ×3 (09:42→19:40)
[2025-10-10] MEDS: DELTASONE 2 MG PO (10:01)
[2025-10-10] MEDS: NAMENDA 10 MG PO ×2 (10:01→19:39)
[2025-10-10] MEDS: ZITHROMAX 250 MG PO (10:01)
[2025-10-10] MEDS: DULCOLAX 10 MG RECTAL (10:06)
--- NOTE | 2025-10-10 10:55 | CM ---
Discharge cancelled today, poss d/c tomorrow
Plan to discharge to [facility] when medically stable
[2025-10-10] MEDS: MILK OF MAGNESIA 30 ML PO (11:48)
[2025-10-10] MEDS: DILAUDID 0.5 MG IV ×2 (11:49→23:47)
[2025-10-10] MEDS: FLUSH (NSS) 1 FLUSH IV (11:50)
[2025-10-10 11:51] LABS: Blood Urea Nitrogen 17 mg/dl (7-17); Calcium 10.5 mg/dl (8.4-10.2); Carbon Dioxide 25 mmol/L (22-30); Chloride 103 mmol/L (98-107); Estimated Creatinine Clearance 56 ml/min; Glucose 122 mg/dl (70-99); Potassium 3.5 mmol/L (3.5-5.1); Sodium 135 mmol/L (135-145); eGFR > 60.00
[2025-10-10] MEDS: ROXICODONE 10 MG PO ×2 (15:20→19:39)
[2025-10-10 15:26] VITALS: BP 134/71
[2025-10-10] MEDS: BenGay-Like TOPICAL (17:57)
[2025-10-10] MEDS: ARICEPT 10 MG PO (21:21)
[2025-10-10] MEDS: MELATONIN 5 MG PO (21:21)
[2025-10-10] MEDS: XALATAN OPHTHALMIC SOLUTION 1 DROP LEFT EYE (21:21)
[2025-10-10 23:44] VITALS: BP 143/69
[2025-10-11] MEDS: ROXICODONE 10 MG PO ×4 (01:26→20:16)
[2025-10-11] MEDS: TYLENOL 650 MG PO ×2 (05:24→08:17)
[2025-10-11] MEDS: DILAUDID 0.5 MG IV ×3 (05:24→22:14)
--- NOTE | 2025-10-11 05:38 | PTCARENOTE ---
Pt has been up numerous times through the night having to urinate and reporting pain to L arm and lower back. Medicated with Roxicodone and Dilaudid as ordered. Bladder scanned this am for a PVR of 150ml. Pt recently c/o pain to R flank area.
Provided muscle rub cream and pain medication as well as heated blanket. Pt sitting on side of bed and unable to find a comfortable position. Dilaudid recently given and pt is now resting in bed sleeping intermittently. Pt is very forgetful and
anxious. Plan of care ongoing.
[2025-10-11] MEDS: SPIRIVA RESPIMAT 2.5 MCG 2 PUFF INH (07:56)
[2025-10-11] MEDS: PULMICORT 0.5 MG INH (07:56)
[2025-10-11] MEDS: SYMBICORT 160/4.5 MCG INHALER 2 PUFF INH ×2 (07:57→19:39)
--- NOTE | 2025-10-11 07:57 | W.PN.HOSP.TC ---
Today's Communication/Plan
-
short course IVF supplementation
pain control
discharge planning SNF rehab
Assessment / Plan
Assessment / Plan
Physical Exam
General: no acute distress, appears comfortable
HEENT: NormoCephalic, Moist mucous membranes and Atraumatic
Respiratory: Clear and Rhonchi
Cardiac: S1/S2 and Regular Rhythm; No Murmur or Rub
GI: Soft, Non Tender, Non Distended and Normal Bowel Sounds; No Organomegaly
Musculoskeletal: No Clubbing, No Cyanosis, +1 edema lower ext's, Left wrist in splint
Skin: No Rash
Neuro: AO x 2 disoriented to time
Psych: Calm
84-year-old with history of COPD asthma, hyperlipidemia osteoporosis who presents to the emergency department following a witnessed mechanical fall at home. She suffered and a fracture of the left wrist is nondisplaced and has minimal deformity.
She was placed in a splint but is unable to manage it by herself with the splint.
PLAN:
Mechanical fall with nondisplaced/minimally displaced left wrist fracture
� MedSurg
� Pain control, discharge held d/t severe pain require IV pain meds, pain regimen adjusted 10 mg Oxycodone Q4HPRN Dilaudid available for severe breakthrough pain, scheduled Tylenol 1000 mg TID
� Maintain splint
� Orthopedic consult s/p ORIF 10/06 strict NWB LUE, ice w/ elevation to control swelling edema, follow up in 2 wks suture removal X-ray
- PT/OT appreciated SNF rehab
Back Pain
-bengay-like cream
-2 Lidocaine patches
COPD/asthma�patient currently stable without any acute symptoms
� Continue albuterol nebs
� Continue home breo, incruse and budesonide
- continue maintenance prednisone 2mg daily
- continue maintenance erythromycin 250mg daily
Dementia
- continue memantine and donepizil
- continue buspirone
Hypercalcemia
suspect Hyperparathyroidism
PTH elevated
normal Vit D level
-urinalysis neg for UTI
-low dose Lasix 20 mg daily started, discontinued d/t exacerbation polyuria
-short course IVF supplementation
-for discharge, patient recommended to stay well hydrated, drink at least 2L water a day
-outpt Endocrine follow up recommended.
Constipation
-cont bowel regimen
-suppository prn
Lymphedema
-TEDs
DVT PPX - SCDs
Code status - Full code
Discussed with patient and patient's daughter Carie
I spent a total of 45 minutes with the patient or on the floor. More than 50% of this time involved counseling and coordination of care.
Anticipated Discharge: Within 24 hours
Subjective/Interval History
-
Date of Service: October 11, 2025
Pain remains uncontrolled. Constipation resolved.
Objective Data
-
Vital Signs:
Vital Signs
Temp Pulse Resp BP Pulse Ox
97.6 F 68 16 143/69 100
10/10/25 23:44 10/10/25 23:44 10/10/25 23:44 10/10/25 23:44 10/10/25 23:44
I&O
10/10/25 10/11/25 10/12/25
06:59 06:59 06:59
Intake Total 240 / 240
Balance 240 / 240
[2025-10-11] MEDS: THERAGRAN 1 TABLET PO (08:16)
[2025-10-11] MEDS: LIPITOR 20 MG PO (08:16)
[2025-10-11] MEDS: SENOKOT 17.2 MG PO ×2 (08:16→20:08)
[2025-10-11] MEDS: PROTONIX 40 MG PO (08:17)
[2025-10-11] MEDS: DELTASONE 2 MG PO (08:18)
[2025-10-11] MEDS: COLACE 100 MG PO ×2 (08:18→20:08)
[2025-10-11] MEDS: NAMENDA 10 MG PO ×2 (08:18→20:08)
[2025-10-11] MEDS: ZITHROMAX 250 MG PO (08:18)
[2025-10-11] MEDS: BenGay-Like 1 APPLIC TOPICAL ×3 (08:20→22:03)
[2025-10-11 09:08] VITALS: BP 144/61
--- NOTE | 2025-10-11 10:04 | CM ---
Per hospitalist, patient not ready for discharge today. Requiring IV pain med.
Possible plan to discharge tomorrow
Plan is to discharge to [facility]
Plan: [facility] hopefully tomorrow
[2025-10-11 10:45] VITALS: BP 131/54; PULSE 64; O2SAT 97
[2025-10-11] MEDS: LIDOCAINE 4% PATCH 2 PATCH TOPICAL (10:55)
[2025-10-11] MEDS: NSS 1000 IV ×2 (10:56→22:09)
[2025-10-11 12:09] LABS: Blood Urea Nitrogen 17 mg/dl (7-17); Calcium 10.7 mg/dl (8.4-10.2); Carbon Dioxide 28 mmol/L (22-30); Chloride 102 mmol/L (98-107); Estimated Creatinine Clearance 56 ml/min; Glucose 103 mg/dl (70-99); Potassium 3.6 mmol/L (3.5-5.1); Sodium 135 mmol/L (135-145); eGFR > 60.00
[2025-10-11] MEDS: BenGay-Like TOPICAL (14:01)
[2025-10-11 16:13] VITALS: BP 129/81
[2025-10-11] MEDS: TYLENOL 1000 MG PO ×2 (17:27→22:02)
[2025-10-11] MEDS: REMOVE LIDOCAINE PATCH 1 PATCH REMOVE (20:09)
[2025-10-11] MEDS: XALATAN OPHTHALMIC SOLUTION 1 DROP LEFT EYE (22:02)
[2025-10-11] MEDS: ARICEPT 10 MG PO (22:02)
[2025-10-11] MEDS: MELATONIN 5 MG PO (22:02)
[2025-10-12 00:27] VITALS: BP 192/100
[2025-10-12] MEDS: ROXICODONE 10 MG PO ×4 (00:34→14:54)
[2025-10-12] MEDS: DILAUDID 0.5 MG IV (01:38)
[2025-10-12 05:26] VITALS: BP 150/77
[2025-10-12] MEDS: SYMBICORT 160/4.5 MCG INHALER 2 PUFF INH (08:10)
[2025-10-12] MEDS: PULMICORT 0.5 MG INH (08:10)
[2025-10-12] MEDS: SPIRIVA RESPIMAT 2.5 MCG 2 PUFF INH (08:10)
[2025-10-12] MEDS: VENTOLIN NEBULES 2.5 MG INH (08:11)
[2025-10-12 08:59] VITALS: BP 196/100
--- NOTE | 2025-10-12 09:09 | W.PN.HOSP.TC ---
Today's Communication/Plan
-
discharge
Assessment / Plan
Assessment / Plan
Physical Exam
General: no acute distress, appears comfortable
HEENT: NormoCephalic, Moist mucous membranes and Atraumatic
Respiratory: Clear and Rhonchi
Cardiac: S1/S2 and Regular Rhythm; No Murmur or Rub
GI: Soft, Non Tender, Non Distended and Normal Bowel Sounds; No Organomegaly
Musculoskeletal: No Clubbing, No Cyanosis, +1 edema lower ext's, Left wrist in splint
Skin: No Rash
Neuro: AO x 2 disoriented to time
Psych: Calm
84-year-old with history of COPD asthma, hyperlipidemia osteoporosis who presents to the emergency department following a witnessed mechanical fall at home. She suffered and a fracture of the left wrist is nondisplaced and has minimal deformity.
She was placed in a splint but is unable to manage it by herself with the splint.
PLAN:
Mechanical fall with nondisplaced/minimally displaced left wrist fracture
� MedSurg
� Pain control, discharge held d/t severe pain require IV pain meds, pain regimen adjusted 10 mg Oxycodone Q4HPRN Dilaudid available for severe breakthrough pain, scheduled Tylenol 1000 mg TID
� Maintain splint
� Orthopedic consult s/p ORIF 10/06 strict NWB LUE, ice w/ elevation to control swelling edema, follow up in 2 wks suture removal X-ray
- PT/OT appreciated SNF rehab
Back Pain
-bengay-like cream
-2 Lidocaine patches
-Pain control as above
COPD/asthma�patient currently stable without any acute symptoms
� Continue albuterol nebs
� Continue home breo, incruse and budesonide
- continue maintenance prednisone 2mg daily
- continue maintenance erythromycin 250mg daily
Dementia
- continue memantine and donepizil
- continue buspirone
Hypercalcemia
suspect Hyperparathyroidism
PTH elevated
normal Vit D level
-urinalysis neg for UTI
-low dose Lasix 20 mg daily started, discontinued d/t exacerbation polyuria
-short course IVF supplementation
-for discharge, patient recommended to stay well hydrated, drink at least 2L water a day
-outpt Endocrine follow up recommended.
Constipation
-cont bowel regimen
-suppository prn
Lymphedema
-TEDs
DVT PPX - SCDs
Code status - Full code
Medically stable for discharge SNF rehab outpt follow up recommendations.
Discussed with patient and patient's daughter Carie
Total Time Preparing Discharge __40 minutes including examination of the patient, summary of the hospital stay, instructions for continuing care to all relevant caregivers; and preparation of discharge records, prescriptions, and referral
forms if necessary.
Anticipated Discharge: Today
Subjective/Interval History
-
Date of Service: October 12, 2025
No acute distress sitting up comfortably in chair. Overall reports feeling well, pain free following recent pain med oxycodone. Looking forward to SNF rehab.
Objective Data
-
Vital Signs:
Vital Signs
Temp Pulse Resp BP Pulse Ox
98.3 F 89 20 196/100 90
10/12/25 08:59 10/12/25 08:59 10/12/25 08:59 10/12/25 08:59 10/12/25 08:59
I&O
10/11/25 10/12/25 10/13/25
06:59 06:59 06:59
Intake Total 240 / 240 1060 / 1060
Balance 240 / 240 1060 / 1060
[2025-10-12] MEDS: DELTASONE 2 MG PO (09:14)
[2025-10-12] MEDS: NAMENDA 10 MG PO (09:14)
[2025-10-12] MEDS: ZITHROMAX 250 MG PO (09:15)
[2025-10-12] MEDS: LIDOCAINE 4% PATCH 2 PATCH TOPICAL (09:15)
[2025-10-12] MEDS: THERAGRAN 1 TABLET PO (09:16)
[2025-10-12] MEDS: COLACE 100 MG PO (09:16)
[2025-10-12] MEDS: TYLENOL 1000 MG PO ×2 (09:16→14:51)
[2025-10-12] MEDS: LIPITOR 20 MG PO (09:16)
[2025-10-12] MEDS: PROTONIX 40 MG PO (09:17)
[2025-10-12] MEDS: SENOKOT 17.2 MG PO (09:17)
[2025-10-12] MEDS: BenGay-Like 1 APPLIC TOPICAL (09:17)
--- NOTE | 2025-10-12 12:53 | W.DCSUMMARY ---
Discharge Summary
Discharge Data
Date of Admission: 10/04/25
Date of Discharge: 10/12/25
-
Pending Results: No
Discharge Plan
-
Patient Disposition: Residential/SNF
Discharge Diagnosis/Procedures: Mechanical fall with nondisplaced/minimally displaced left wrist fracture s/p ORIF 10/06
Back Pain
COPD/asthma
Dementia
Hypercalcemia
Hyperparathyroidism
Lymphedema Lower Extremities
Condition: Fair
Diet: Regular
Additional Diets: Good hydration recommended, at least 2L water a day
Activity: With assistance
Driving Restrictions: No driving
Others Tests: Follow up with orthopedic in 1-2 weeks of discharge for repeat imaging wrist fracture status post repair
Other Services: PT and OT
Wound Care: strict non-weightbearing Left Upper Extremity
Activity Restrictions/Additional Instructions:
Follow up with primary care provider in 1 week of discharge, Orthopedic in 1-2 weeks of discharge, and Endocrinology in 2-4 weeks of discharge.
Tylenol 1000 mg four times a day prescribed for pain, switch to as needed after 3 days.
Bengay-like cream prescribed for muscle/back pain.
Lidocaine patches prescribed for back pain.
Oxycodone prescribed for moderate severe pain as needed.
Ice packs as needed for back/arm pain also recommended.
Vitamin D supplementation discontinued due to hypercalcemia/hyperparathyroidism
Please take medications as prescribed/recommended and follow up with primary care provider Orthopedic Endocrinology and/or other healthcare provider involved in your care for refills and/or further adjustment to your medication regimen as necessary.
Knee high TEDs recommended for lower extremity lymphedema
Referrals:
Mai Yip MD [Consulting Staff, Endocrinology] - in two to four weeks
Samreen Leung CRNP [Family Provider, General] - in one week
Berry Foster MD [Active, Orthopedics] - in one to two weeks
Prescriptions:
New
Analgesic [place] (chucho-menth) 15-10 % Cream
1 applic topical QID Qty: 85 0RF
Rx Instructions:
Muscle/back pain
lidocaine 4 % Adhesive Patch,Medicated
2 patch topical DAILY Qty: 10 0RF
Rx Instructions:
Back Pain
acetaminophen [Tylenol Extra Strength] 500 mg Tablet
1,000 mg PO QID 3 Days Qty: 24 0RF
Rx Instructions:
After 3 days, switch to as needed for pain/fever/headache
oxycodone 10 mg Tablet
10 mg PO Q4HPRN PRN (Reason: moderate severe pain) Qty: 18 0RF
Continued
albuterol sulfate [Ventolin HFA] 90 MCG/PUFF HFA aerosol inhaler
2 puff inhalation R Q4HPRN PRN (Reason: wheezing)
Incruse Ellipta 62.5 mcg/actuation Blister With Device
1 inh INHALATION BID
ascorbic acid (vitamin C) [Vitamin C] 500 mg Tablet
500 mg PO DAILY
azithromycin 250 MG tablet
250 mg PO DAILY
albuterol sulfate 2.5 mg /3 mL (0.083 %) solution for nebulization
2.5 mg inhalation R BIDPRN PRN (Reason: sob)
cyanocobalamin (vitamin B-12) 1,000 mcg Tablet
1,000 mcg PO DAILY
prednisone 1 mg tablet
2 mg PO DAILY
ferrous sulfate 325 mg (65 mg iron) Tablet
325 mg PO DAILY
budesonide 0.5 mg/2 mL suspension for nebulization
0.5 mg inhalation R DAILY
vitamin K2 (MK-4) 100 mcg Tablet
100 mcg PO DAILY
quercetin 500 mg Capsule
500 mg PO DAILY
atorvastatin 20 mg Tablet
20 mg PO DAILY
donepezil 10 mg Tablet
10 mg PO HS
therapeutic multivitamin Tablet
1 tab PO DAILY
zinc sulfate 50 mg zinc (220 mg) Tablet
50 mg PO DAILY
buspirone 7.5 mg Tablet
7.5 mg PO DAILYPRN PRN (Reason: anxiety)
Patient Comments:
11/01/24: Patient rarely takes this medication.
fluticasone furoate-vilanterol [Breo Ellipta] 200-25 mcg/dose Blister With Device
1 inh INHALATION BID
Lumigan 0.01 % Drops
1 drp LEFT EYE HS
guaifenesin 600 mg tablet extended release 12hr
1,200 mg PO Q12 PRN (Reason: CONGESTION )
Discontinued
cholecalciferol (vitamin D3) [Vitamin D3] 25 mcg (1,000 unit) Tablet
25 mcg PO DAILY
rnmzpof-vqnzxubdormyy-julalhpl [Excedrin Migraine] 250-250-65 mg Tablet
1 tab PO DAILY
Discharge Orders:
Discharge Patient (As Directed); Ordered 10/12/25
Ordered By: Meseret Worthington
Discharge Date and Time
Print Language: KITTITIAN
--- NOTE | 2025-10-12 14:19 | CM ---
Patient is for transfer to [facility] today. CM contacted thanna to update authorization but no update required. She has a 430 pm ambulance bead picker scheduled. Discussed transfer arrangements with patient and her daughter, Carie.
[facility]
Phone # for Report - [phone]

Plan: transfer to [facility] today.
[2025-10-12] MEDS: BenGay-Like TOPICAL (14:52)
[2025-10-12 17:05] VITALS: BP 110/69
== END 2025-10-12 18:53 | DRG 512 ==
LOC: 4 WEST ACU 01:17
PROVIDERS: Internal Medicine; Orthopaedic Surgery Hand Surgery; ADMITTING PHYSICIAN Internal Medicine; ATTENDING PHYSICIAN Internal Medicine; CONSULT PHYSICIAN Orthopaedic Surgery; CONSULT PHYSICIAN Student in an Organized Health Care Education/Training Program; EMERGENCY PHYSICIAN Emergency Medicine; FAMILY PHYSICIAN Nurse Practitioner Adult Health
PROC: 0PSJ04Z Reposition Left Radius with Internal Fixation Device, Open Approach (ICD-10-PCS; 2025-10-06)
DX: S52.122A Displaced fracture of head of left radius, initial encounter for closed fracture (principal); Z87.891 Personal history of nicotine dependence; E83.52 Hypercalcemia; S52.602A Unspecified fracture of lower end of left ulna, initial encounter for closed fracture; W19.XXXA Unspecified fall, initial encounter; Z79.82 Long term (current) use of aspirin; Z79.899 Other long term (current) drug therapy
CPT/HCPCS: 12011; 29125; 70450; 72125; 73110; 73610; 80048; 81003; 82306; 83735; 83970; 84100; 85025; 85027; 93005; 94640; 96374; 96375; 96376; 97110; 97116; 97163; 97164; 97167; 97530; 97535; 99285

== ENCOUNTER → 2025-10-14 11:03 | Outpatient (REF) | payer OTHER, SELFPAY ==
[2025-10-14 11:33] LABS: Hematocrit 38.1 % (37.0-47.0); Hemoglobin 11.9 g/dL (12.0-16.0); Mean Corp Hgb Conc. 31.2 g/dL (33.0-37.0); Mean Corpuscular Volume 96.5 fL (81.0-99.0); Nucleated Red Blood Cells % 0 %; Platelet Count 369 10^3/uL (130-400); Red Cell Dist. Width 13.3 % (11.5-14.5)
[2025-10-14 11:51] LABS: ALT (SGPT) 21 U/L (0-35); AST (SGOT) 34 U/L (14-36); Albumin 3.3 g/dl (3.5-5.0); Alkaline Phosphatase 90 U/L (38-126); Blood Urea Nitrogen 13 mg/dl (7-17); Calcium 10.2 mg/dl (8.4-10.2); Carbon Dioxide 25 mmol/L (22-30); Chloride 104 mmol/L (98-107); Glucose 82 mg/dl (70-99); Magnesium 2.0 mg/dl (1.6-2.3); Potassium 4.1 mmol/L (3.5-5.1); Sodium 134 mmol/L (135-145); Total Protein 5.5 g/dl (6.3-8.2); eGFR > 60.00
== END ==
LOC: OLABWHC 11:03
PROVIDERS: ATTENDING PHYSICIAN Family Medicine
DX: J44.9 Chronic obstructive pulmonary disease, unspecified (principal); E83.52 Hypercalcemia; D64.9 Anemia, unspecified
CPT/HCPCS: 36415; 80053; 83735; 85025